=== PATIENT | male | born 1940 | race Caucasian/White ===

== ENCOUNTER 2019-08-16 17:55 | Inpatient (IN) | payer OTHER ==
[2019-08-16] MEDS ORDERED: ONDANSETRON 4 MG/2 ML VIAL IVPUSH ONE (18:01)
--- NOTE | 2019-08-16 18:05 | PDOC ---
Rapid Medical Evaluation Chief Complaint: Pain Time Seen by Provider: 08/16/19 18:01 Medical Evaluation: 08/16/19 18:04 HPI: Abdominal pain and vomiting today PE: RUQ tenderness ORDERS: Labs, EGG, Troponin Bili Discharge Disposition - Diagnosis Abdominal pain - Referrals - Patient Instructions - Post Discharge Activity
[2019-08-16] MEDS ORDERED: ONDANSETRON 4 MG/2 ML VIAL ONE (18:28)
[2019-08-16 18:57] LABS: BASO % 0.3 % (0-2.0); EOS % 0.1 % (0-4.5); HEMATOCRIT 45.2 % (35.4-49); HEMOGLOBIN 15.2 GM/dL (11.7-16.9); MCH 29.5 pg (25.7-33.7); MCHC 33.5 g/dl (32.0-35.9); MEAN CELL VOLUME 87.9 fl (80-96); MEAN PLT VOLUME 7.9 fl (7.5-11.1); MONO % 3.3 % (3.8-10.2); NEUT % 90.3 % (42.8-82.8); PLATELET COUNT 359 K/MM3 (134-434); RBC 5.15 M/mm3 (4.00-5.60); WHITE BLOOD COUNT 13.8 K/mm3 (4.0-10.0)
--- NOTE | 2019-08-16 19:09 | PDOC ---
History of Present Illness - General Chief Complaint: Pain Stated Complaint: ABD/PAIN/ALL QUADRANTS/VOMITTING Time Seen by Provider: 08/16/19 18:01 - History of Present Illness Initial Comments: 08/16/19 20:12 Mr. Thacker is a 79 y/o man with no reported pmhx who presents to the ED complaining of RUQ which began this afternoon around 12pm. Per the patient he had pain like this once before in May, at that time he was seen by a primary care doctor in a clinic (pt could not recall name of doctor) who did a RUQ u/s and told pt there was no evidence of gallstones or kidney stones. The doctor prescribed the pt omeprazole which he took every day and said his sx resolved. Then today the pt woke up and had a coffee when his pain began, it continued to become more severe until the pt vomited. He could not tolerate any food. He denied any blood in the vomit and said it was very little since he hadn 't eaten. The patient has not seen a belt buckle maker or ever had an endoscopy. The patient could not recall if anything made his sx better or worse and he didn't try taking any medicine except his omeprazole which didn't help. The pain is mainly in the RUQ but he also has diffuse pain throughout the abdominal area, it is not radiating anywhere else. Past History - Travel Traveled outside of the country in the last 30 days: No Close contact w/someone who was outside of country & ill: No - Past Medical History Allergies/Adverse Reactions: Allergies Allergy/AdvReac Type Severity Reaction Status Date / Time No Known Allergies Allergy Verified 08/16/19 18:04 Home Medications: Ambulatory Orders Omeprazole 20 mg PO DAILY 08/16/19 COPD: No GI Disorders: Yes (on Omeprazole) - Psycho Social/Smoking Cessation Hx Smoking History: Never smoked Information on smoking cessation initiated: No Hx Alcohol Use: No Drug/Substance Use Hx: No Review of Systems - Review of Systems Able to Perform ROS?: Yes Is the patient limited Slovak proficient: Yes Constitutional: Yes: Loss of Appetite, Malaise. No: Chills, Diaphoresis, Fever HEENTM: No: Eye Pain, Recent change in vision, Throat Pain, Throat Swelling Respiratory: No: Cough, Orthopnea, Shortness of Breath Cardiac (ROS): No: Chest Pain, Edema, Lightheadedness, Palpitations ABD/GI: Yes: Nausea, Poor Appetite, Vomiting, Other (severe RUQ abdominal pain) . No: Abdominal Distended, Abd. Pain w/ defecation, Blood Streaked Bowels, Constipated, Diarrhea : No: Burning, Dysuria, Frequency Integumentary: No: Bruising, Erythema, Lumps, Rash Neurological: No: Headache, Numbness, Paresthesia, Tingling *Physical Exam - Vital Signs Last Vital Signs Temp Pulse Resp BP Pulse Ox 98.3 F 102 H 19 127/78 97 08/16/19 18:03 08/16/19 18:03 08/16/19 18:03 08/16/19 18:03 08/16/19 18:03 - Physical Exam General Appearance: Yes: Nourished, Appropriately Dressed, Apparent Distress HEENT: positive: EOMI, ARACELI, Normal ENT Inspection, Normal Voice, TMs Normal Neck: positive: Trachea midline, Supple. negative: Tender Respiratory/Chest: positive: Lungs Clear, Normal Breath Sounds. negative: Respiratory Distress, Accessory Muscle Use Cardiovascular: positive: Regular Rhythm, Regular Rate, S1, S2. negative: JVD, Murmur Gastrointestinal/Abdominal: positive: Normal Bowel Sounds, Tender (diffusely tender and guarding throughout but worst pain in RUQ), Flat, Guarding Male Genitalia: positive: other (positive cunningham's sign) Musculoskeletal: positive: Normal Inspection. negative: CVA Tenderness, Vertebral Tenderness Extremity: positive: Normal Capillary Refill, Normal Inspection, Normal Range of Motion. negative: Tender Integumentary: positive: Normal Color, Dry, Warm Neurologic: positive: electronic prepress operator II-XII NML intact, Fully Oriented, Alert, Normal Mood/ Affect, Motor Strength 5/5 ED Treatment Course - LABORATORY CBC & Chemistry Diagram: 08/16/19 18:30 08/16/19 18:30 - ADDITIONAL ORDERS Additional order review: 08/16/19 18:30 RBC 5.15 MCV 87.9 MCHC 33.5 RDW 14.0 MPV 7.9 Neutrophils % 90.3 H Lymphocytes % 6.0 L Monocytes % 3.3 L Eosinophils % 0.1 Basophils % 0.3 - Medications Given in the ED: ED Medications Discontinued Medications Generic Name Dose Route Start Last Admin Trade Name Freq PRN Reason Stop Dose Admin Ondansetron HCl 4 mg 08/16/19 18:01 08/16/19 18:35 Zofran Injection IVPUSH 08/16/19 18:02 4 mg ONCE ONE Administration Medical Decision Making - Medical Decision Making 08/16/19 20:23 Mr. Thacker is a 79 y/o man with no reported pmhx who presents to the ED complaining of RUQ which began this afternoon around 12pm. Differential includes cholecystitis vs. PUD will obtain - CBC - CMP - RUQ u/s - CT abd with contrast - FOBT - Lipase - troponin - LFTs - Direct bili Will order: - 20mg Pepcid IVPB - 4mg morphine IV push for pain - Zofran for nausea 08/16/19 23:52 CT prelim read showing distended GB irregular thickening of the GB and dilated CBD suspicious for choledocolithasis, also irregular thickening of the greater curvature of the gastric mucosa. Tbili/ Dbili elevated 08/17/19 00:[address] Oliver who advised reaching out to GI first as pt likely to need MRCP. 08/17/19 00:[address] Oliver both consulted, pt to be admitted to [facility] for further evaluation Discharge - Discharge Information Clinical Impression/Diagnosis: Abdominal pain - Admission Yes - Follow up/Referral Referrals: Paradise Gomez MD [Primary Care Provider] - - Patient Discharge Instructions - Post Discharge Activity
[2019-08-16] MEDS ORDERED: morphine CARPU-JECT 4 MG/1 ML DISP.SYRIN IVPUSH ONE (19:57)
[2019-08-16] MEDS ORDERED: FAMOTIDINE 20 MG/50 ML IVPB 20 MG/50 ML MG IVPB ONE ×2 (19:57→20:04)
[2019-08-16] MEDS ORDERED: morphine SULFATE 4 MG/ML VIAL ONE (20:04)
[2019-08-16 20:24] LABS: BLOOD UREA NITROGEN 14.4 mg/dL (7-18); CALCIUM 8.9 mg/dL (8.5-10.1); CHLORIDE 106 mmol/L (98-107); CREATININE 1.1 mg/dL (0.55-1.3); GLUCOSE,RANDOM 143 mg/dL (74-106); POTASSIUM 4.9 mmol/L (3.5-5.1); SODIUM 136 mmol/L (136-145)
[2019-08-16 20:25] LABS: ALBUMIN 3.7 g/dl (3.4-5.0); BILIRUBIN,TOTAL 2.8 mg/dL (0.2-1); TOT PROT 7.8 g/dl (6.4-8.2)
[2019-08-16 20:26] LABS: ALK PHOS 308 U/L (45-117)
[2019-08-16 20:56] LABS: ANION GAP 7 MMOL/L (8-16); BILIRUBIN,DIRECT 1.4 mg/dL (0.0-0.2); CO2 23 mmol/L (21-32); SGOT/AST 124 U/L (15-37); SGPT/ALT 104 U/L (13-61)
[2019-08-16] MEDS ORDERED: PIPERACILLIN/TAZOB 3.375 GM 3.375 GM in DEXTROSE 5%-WATER - 50 ML IVPB ONE (22:50)
[2019-08-16] MEDS ORDERED: SODIUM CHLORIDE 0.9% 1000 ML INFUS.BAG IV ONE (22:51)
[2019-08-16] MEDS ORDERED: PIPERACILLIN/TAZOB 3.375 GM 3.375 GM/50 ML BAG IVPB ONE (23:01)
[2019-08-17] MEDS ORDERED: ACETAMINOPHEN 1000 MG/100 ML VIAL (NON FORMULARY) IVPB ONE (00:09)
[2019-08-17] MEDS ORDERED: ACETAMINOPHEN INJECTION 100 ML IVPB ONE (00:10)
--- NOTE | 2019-08-17 00:18 | PDOC ---
Documentation entered by Kenneth Lopez SCRIBE, acting as scribe for Reta Keita MD. Reta Keita MD: This documentation has been prepared by the John ordonez Daniel, SCRIBE, under my direction and personally reviewed by me in its entirety. I confirm that the documentation accurately reflects all work, treatment, procedures, and medical decision making performed by me. Attending Attestation - Resident Resident Name: Jazmin Sanchez - ED Attending Attestation I have performed the following: I have examined & evaluated the patient, The case was reviewed & discussed with the resident, I agree w/resident's findings & plan, Exceptions are as noted - HPI HPI: 08/16/19 20:01 The patient is a 79 year old male with no past medical history here today for evaluation of abdominal pain. The patient reports that his abdominal pain started yesterday, has been worsening since, and is most prominent in the right upper quadrant. He notes only drinking coffee today and vomiting 3 times which was described as bilious. Patients daughter notes that the patient had a similar pain in 06/07 and went to a clinic where he had a negative US. Patient also notes that he does not usually see a PCP but saw one last week. Patient denies headache, lightheadedness. Denies fever, chills. Denies chest pain, shortness of breath. Denies diarrhea. Allergies: NKA PCP: Paradise Gomez - Physicial Exam PE: 08/17/19 00:15 Patient is awake alert no acute distress lungs are clear bilaterally heart is regular without murmurs rubs or gallops abdomen is soft there is right upper quadrant tenderness to palpation no rebound no guarding noted. Extremities are warm and well perfused no edema skin is warm and dry no rash - Medical Decision Making 08/17/19 00:15 79-year-old male no known past medical history however has no PMD here complaining of epigastric right upper quadrant pain. Patient states he had a work-up for this 2 months back at that time had an ultrasound of his liver and gallbladder was told it was normal. Today started having extreme pain nausea but denies any vomiting has been complaining of chills but denies any fevers pain is severe it is constant no radiation denies any known history of renal stones or gallstones. No urinary changes no dysuria no frequency no diarrhea denies constipation last BM was today and was normal. On my exam patient has tenderness the right upper quadrant but is awake alert and oriented Differential diagnosis includes cholelithiasis, cholecystitis, pancreatitis, gastritis plan bedside us, us performed screening, pt with wall edema, questionable pericholecystic fluid vs. focal fatty sparing. no stones. cbd borderline dilated. plan radiology us, and ct a/p ct a/p with wal thickening, and dilatd CBD, stomach wall irregularity LFT abnormal. WBc 13. plan give maurizio, azael. d/w surgery jon Manley see in hospital. d/w GI. will priya to hospitalist
[2019-08-17] MEDS ORDERED: ONDANSETRON 4 MG/2 ML VIAL IVPUSH PRN ×2 (00:34→13:42)
[2019-08-17] MEDS ORDERED: LACTATED RINGERS SOLUTION 1,000 ML IV SCH ×4 (00:45→13:45)
--- NOTE | 2019-08-17 01:29 | HP ---
CHIEF COMPLAINT: Abdominal Pain PCP: Dr. Chao HISTORY OF PRESENT ILLNESS: This is a 79 y/o Salvadorean speaking M with no reported medical history who presents with 10/10 RUQ pain that is non-radiating X 1 day. He had a fever and nausea/NBNB emesis for a day as well. Pt denies any association with foods. Pt's only medication he takes is omeprazole 20mg. He has not seen a GI doctor recently or in the past. Pt has not traveled recently, been on abx, or been exposed to sick contacts. Pt denies any cp, sob, bowel/ bladder complaints, back pain, GERD recently. ER course was notable for: (1)IVF LR 100cc/hr, AST/ALT- 124/104, Zosyn given (2) T bili- 2.8, Dbili- 1.4, ALP- 308, Lipase normal (3) Fatty liver on Sonogram and ct abd/pelvis- distended GB irregularly thickened GB, dilated CBD suspicious for Choledocholithiasis w irregularly thickened gastric mucosa. Recent Travel: denies PAST SURGICAL HISTORY: denies Social History: Smoking: never Alcohol: never Drugs: never Allergies No Known Allergies Allergy (Verified 08/16/19 18:04) HOME MEDICATIONS: Home Medications Medication Instructions Recorded Omeprazole 20 mg PO DAILY 08/16/19 REVIEW OF SYSTEMS negative except in HPI PHYSICAL EXAMINATION Vital Signs - 24 hr 08/16/19 08/16/19 08/16/19 18:03 19:25 21:03 Temperature 98.3 F 98.7 F 102.6 F H Pulse Rate 102 H Pulse Rate [ 99 H Left Radial] Respiratory 19 20 Rate Blood Pressure 127/78 Blood Pressure 127/66 [Right Arm] O2 Sat by Pulse 97 97 Oximetry (%) GENERAL: Awake, alert, and fully oriented, in minimal acute distress. LUNGS: Breath sounds equal, clear to auscultation bilaterally. No wheezes, and no crackles. No accessory muscle use. HEART: Regular rate and rhythm, normal S1 and S2 without murmur, rub or gallop. ABDOMEN: Soft, tenderness to palpation of RUQ, negative cunningham sign, not distended, normoactive bowel sounds, no guarding, no rebound, no masses. LOWER EXTREMITIES: 2+ pulses, warm, well-perfused. No calf tenderness. No peripheral edema. SKIN: Warm, dry, no rashes or lesions noted Laboratory Results - last 24 hr 08/16/19 08/16/19 08/16/19 00:04 18:30 18:30 WBC 13.8 H RBC 5.15 Hgb 15.2 Hct 45.2 MCV 87.9 MCH 29.5 MCHC 33.5 RDW 14.0 Plt Count 359 MPV 7.9 Absolute Neuts (auto) 12.4 H Neutrophils % 90.3 H Lymphocytes % 6.0 L Monocytes % 3.3 L Eosinophils % 0.1 Basophils % 0.3 Nucleated RBC % 0 Sodium 136 Potassium 4.9 Chloride 106 Carbon Dioxide 23 Anion Gap 7 L BUN 14.4 Creatinine 1.1 Est GFR (CKD-EPI)AfAm 74.13 Est GFR (CKD-EPI)NonAf 63.96 Random Glucose 143 H Lactic Acid 2.1 H Calcium 8.9 Total Bilirubin 2.8 H Direct Bilirubin 1.4 H AST 124 H ALT 104 H Alkaline Phosphatase 308 H Troponin I < 0.02 Total Protein 7.8 Albumin 3.7 Lipase 08/16/19 18:30 WBC RBC Hgb Hct MCV MCH MCHC RDW Plt Count MPV Absolute Neuts (auto) Neutrophils % Lymphocytes % Monocytes % Eosinophils % Basophils % Nucleated RBC % Sodium Potassium Chloride Carbon Dioxide Anion Gap BUN Creatinine Est GFR (CKD-EPI)AfAm Est GFR (CKD-EPI)NonAf Random Glucose Lactic Acid Calcium Total Bilirubin Direct Bilirubin AST ALT Alkaline Phosphatase Troponin I Total Protein Albumin Lipase 249 ASSESSMENT/PLAN: This is a 79 y/o Salvadorean speaking M with no reported medical history who presents with 10/10 RUQ pain that is non-radiating X 1 day. He had a fever and nausea/NBNB emesis for a day as well. #Septic 2/2 Acute Cholecystitis and probable acute ascending cholangitis - Surgery consulted (Dr. Alberto) for Cholecystectomy once GI performs MRCP or ERCP - GI consulted (Dr Simpson) for probable MRCP to visualize the biliary tree and potentially ERCP to remove the CBD stone. - ALP: 308, AST/ALT: 124/104 - Dbili: 1.4 - Tbili: 2.8, normal lipase, maite pentad positive signs - blood cultures pending - Fatty liver shown on sono which is probably why LFT's are elevated as well as of course cholecystitis. - Zosyn continued 3.375g TID, as risk of biliary sludge with ceftriaxone. - DVT ppx: Lovenox 40mg SQ Visit type - Emergency Visit Emergency Visit: Yes ED Registration Date: 08/17/19 Care time: The patient presented to the Emergency Department on the above date and was hospitalized for further evaluation of their emergent condition. - New Patient This patient is new to me today: Yes Date on this admission: 08/19/19 - Critical Care Critical Care patient: No ATTENDING PHYSICIAN STATEMENT I saw and evaluated the patient. I reviewed the resident's note and discussed the case with the resident. I agree with the resident's findings and plan as documented. SUBJECTIVE: OBJECTIVE: ASSESSMENT AND PLAN:
--- NOTE | 2019-08-17 03:04 | PN ---
Teaching Attending Note Name of Resident: Nate Knox ATTENDING PHYSICIAN STATEMENT I saw and evaluated the patient. I reviewed the resident's note and discussed the case with the resident. I agree with the resident's findings and plan as documented. SUBJECTIVE: 79-year-old male who does not regularly follow with a physician reported no past medical history complained of his right upper quadrant which started about 1 day ago multiple episodes of bloody bilious vomiting but no diarrhea. Pain started spontaneously, no prior events of similar pain reported. Denied any fever chills. Patient has never had any surgeries and has never been hospitalized before. OBJECTIVE: Last Vital Signs Temp Pulse Resp BP Pulse Ox 102.6 F H 99 H 20 127/66 97 08/16/19 21:03 08/16/19 19:25 08/16/19 19:25 08/16/19 19:25 08/16/19 19:25 GENERAL: Well developed, well nourished. Awake and alert. No acute distress. HEENT: Normocephalic, atraumatic. PERRLA, EOMI. No conjunctival pallor. Mild scleral icterus is appreciated NECK: Supple. Full ROM. No JVD. Carotid pulses 2+ and symmetric, without bruits. No thyromegaly. No lymphadenopathy. CARDIOVASCULAR: Regular rate and rhythm. No murmurs, rubs, or gallops. Distal pulses are 2+ and symmetric. PULMONARY: No evidence of respiratory distress. Lungs clear to auscultation bilaterally. No wheezing, rales or rhonchi. ABDOMINAL: Soft. Non-tender. Non-distended. No rebound or guarding. No organomegaly. Normoactive bowel sounds. Negative Spencer sign MUSCULOSKELETAL Normal range of motion at all joints. No bony deformities or tenderness. No CVA tenderness. EXTREMITIES: No cyanosis. No clubbing. No edema. No calf tenderness. SKIN: Warm and dry. Normal capillary refill. No rashes. No jaundice. PSYCHIATRIC: Cooperative. Good eye contact. Appropriate mood and affect. Abnormal Lab Results 08/16/19 08/16/19 08/16/19 00:04 18:30 18:30 WBC 13.8 H Absolute Neuts (auto) 12.4 H Neutrophils % 90.3 H Lymphocytes % 6.0 L Monocytes % 3.3 L Anion Gap 7 L Random Glucose 143 H Lactic Acid 2.1 H Total Bilirubin 2.8 H Direct Bilirubin 1.4 H AST 124 H ALT 104 H Alkaline Phosphatase 308 H Imaging studies reviewed Right upper quadrant ultrasound revealed fatty liver but no evidence of cholelithiasis or cholecystitis. CT of abdomen pelvis with IV contrast showed elongated and distended gallbladder with irregular thickened wall appearance. CBD was dilated at 11 mm with questionable noncalcified stone within the distal common bile duct at the level of the ampulla. ASSESSMENT AND PLAN: 79-year-old male with sepsis secondary to cholecystitis and/or cholangitis. High fever, tachycardia, leukocytosis. Cholestatic picture of transaminitis with high total and direct bilirubin, high alkaline phosphatase. Radiological evidence of cholecystitis and dilated CBD suggestive of cholangitis.Mild lactic acidosis. [facility] Repeat lactic acid IV fluid hydration Empiric antibiotic therapy with Zosyn Infectious disease, GI, surgery consultations Patient may require cholecystectomy and ERCP PT, PTT, type and screen Avoid antiplatelet agents and anticoagulants #Transaminitispresumed to be secondary to choledocholithiasis and cholecystitis Hepatitis B C serologies Tylenol and EtOH levels Urine drug screen Repeat liver chemistry SCDs for DVT prophylaxis
[2019-08-17 05:25] VITALS: BMI 24.4
[2019-08-17] MEDS ORDERED: MORPHINE SULFATE 2 MG/ML VIAL IVPUSH PRN (06:10)
[2019-08-17] MEDS ORDERED: DEXTROSE 5%-WATER - 50 ML IVPB ONE ×2 (06:59→12:20)
[2019-08-17] MEDS ORDERED: PIPERACILLIN/TAZOBACTAM 3.375 GM VIAL IVPB ONE ×2 (06:59→12:20)
[2019-08-17] MEDS: PIPERACILLIN/TAZOB 3.375 GM 3.375 GM in DEXTROSE 5%-WATER - 50 ML IVPB SCH ×2 (07:04→12:22)
[2019-08-17] MEDS ORDERED: PIPERACILLIN/TAZOB 3.375 GM 3.375 GM in DEXTROSE 5%-WATER - 50 ML IVPB SCH (08:00)
[2019-08-17 09:16] LABS: BASO % 0.1 % (0-2.0); HEMATOCRIT 36.5 % (35.4-49); HEMOGLOBIN 12.5 GM/dL (11.7-16.9); LYMPH % 10.9 % (8-40); MCH 29.8 pg (25.7-33.7); MCHC 34.2 g/dl (32.0-35.9); MEAN CELL VOLUME 86.9 fl (80-96); MEAN PLT VOLUME 7.9 fl (7.5-11.1); MONO % 4.9 % (3.8-10.2); NEUT % 84.1 % (42.8-82.8); PLATELET COUNT 300 K/MM3 (134-434); WHITE BLOOD COUNT 17.5 K/mm3 (4.0-10.0)
[2019-08-17 09:47] LABS: ALBUMIN 2.8 g/dl (3.4-5.0); BILIRUBIN,TOTAL 5.2 mg/dL (0.2-1); BLOOD UREA NITROGEN 16.3 mg/dL (7-18); CALCIUM 8.3 mg/dL (8.5-10.1); CREATININE 1.1 mg/dL (0.55-1.3); MAGNESIUM 1.8 mg/dL (1.8-2.4); PHOSPHOROUS 3.8 mg/dL (2.5-4.9); POTASSIUM 3.8 mmol/L (3.5-5.1)
[2019-08-17] MEDS ORDERED: ENOXAPARIN NA (PORCINE) 40 MG/0.4 ML DISP.SYRIN SQ SCH (10:00)
[2019-08-17] MEDS ORDERED: SODIUM CHLORIDE 500 ML IV STA (10:11)
[2019-08-17 11:25] LABS: INR 1.18 (0.83-1.09)
[2019-08-17 11:28] LABS: ACTIVATED PTT 31.2 SECONDS (25.2-36.5)
[2019-08-17 11:44] LABS: URINE APPEARANCE CLEAR; URINE BILIRUBIN MODERATE (NEGATIVE); URINE COLOR DK YELLOW; URINE GLUCOSE (UA) NEGATIVE (NEGATIVE)
[2019-08-17 11:45] LABS: URINE KETONE NEGATIVE (NEGATIVE); URINE NITRITE POSITIVE (NEGATIVE); URINE PROTEIN TRACE (NEGATIVE)
[2019-08-17 11:46] LABS: EPI CELLS 0.6 /HPF (0-5/HPF); HYALINE CASTS 2.16 /lpf (0-8); URINE BACTERIA 0.3 /hpf (NEGATIVE); URINE LEUK ESTERASE NEGATIVE (NEGATIVE); URINE RBC 2 /hpf (0-4); URINE WBC 0.6 /hpf (0-5)
[2019-08-17] MEDS ORDERED: MIDAZOLAM HCL 2 MG/2 ML SINGLE DOSE VIAL ONE (12:04)
--- NOTE | 2019-08-17 12:34 | CON.ID ---
Consult Consult Specialty:: infectious disease Referred by:: hospitalist Reason for Consultation:: fever - History of Present Illness Chief Complaint: ruq pain and vomiting History of Present Illness: 79 yo man admitted with RUQ pain and vomiting had fever to 102 after admission nonbloody vomiting no diarrhea travels to [facility] every winter in May he had abdominal pain- seen in clinic on [facility]- daughter has the papers- abnormal lfts with sonogram showing dilated cbd placed on omeprazole seen in clinic last week when they were given the labs and sonogram results had fevers that spontaneously resolved in May no surgery no diabetes currently no abdominal pain - History Source History Provided By: Family Member Limitations to Obtaining History: Language Barrier - Alcohol/Substance Use Hx Alcohol Use: No - Smoking History Smoking history: Never smoked Home Medications - Allergies Allergies/Adverse Reactions: Allergies Allergy/AdvReac Type Severity Reaction Status Date / Time No Known Allergies Allergy Verified 08/16/19 18:04 - Home Medications Home Medications: Ambulatory Orders Omeprazole 20 mg PO BID 08/16/19 Family Medical History Family History: Denies Review of Systems - Review of Systems Constitutional: reports: Fever Eyes: reports: No Symptoms HENT: reports: No Symptoms Neck: reports: No Symptoms Cardiovascular: reports: No Symptoms. denies: Chest Pain Respiratory: reports: No Symptoms. denies: SOB Gastrointestinal: reports: Abdominal Pain, Vomiting Genitourinary: reports: No Symptoms Physical Exam Vital Signs: Vital Signs Temperature 98.4 F 08/17/19 08:47 Pulse Rate 74 08/17/19 08:47 Respiratory Rate 18 08/17/19 08:47 Blood Pressure 93/51 L 08/17/19 08:47 O2 Sat by Pulse Oximetry (%) 96 08/17/19 00:27 Constitutional: Yes: Well Nourished, No Distress, Calm Eyes: Yes: Sclera Icterus HENT: Yes: Atraumatic, Normocephalic Neck: Yes: Supple, Trachea Midline Cardiovascular: Yes: Regular Rate and Rhythm Respiratory: Yes: Regular, CTA Bilaterally Gastrointestinal: Yes: Soft, Other (received pain meds, currently no abdominal pain) ...Rectal Exam: Yes: Deferred Extremities: Yes: WNL Edema: No Labs: CBC, BMP 08/17/19 08:05 08/17/19 08:05 Imaging - Results Cat Scan: Report Reviewed Ultrasound: Report Reviewed Problem List - Problems (1) Biliary sepsis Code(s): K83.09 - OTHER CHOLANGITIS (2) Choledocholithiasis with acute cholecystitis Code(s): K80.42 - CALCULUS OF BILE DUCT W ACUTE CHOLECYSTITIS W/O OBSTRUCTION Assessment/Plan blood cultures sent for ERCP today with GI and surgical evalustions pending continue maurizio
[2019-08-17 13:11] LABS: BILIRUBIN,DIRECT 3.9 mg/dL (0.0-0.2)
--- NOTE | 2019-08-17 14:17 | EKG ---
Test Reason : Blood Pressure : / mmHG Vent. Rate : 095 BPM Atrial Rate : 095 BPM P-R Int : 152 ms QRS Dur : 064 ms QT Int : 328 ms P-R-T Axes : 041 034 056 degrees QTc Int : 412 ms POOR DATA QUALITY, INTERPRETATION MAY BE ADVERSELY AFFECTED NORMAL SINUS RHYTHM NORMAL ECG NO PREVIOUS ECGS AVAILABLE Confirmed by CLARKE GÓMEZ MD ([id number]) on 08/17/2019 2:17:07 PM Referred By: Confirmed By:CLARKE GÓMEZ MD
--- NOTE | 2019-08-17 14:24 | CONS ---
DATE OF CONSULTATION: 08/17/2019 REASON FOR CONSULTATION: Cholangitis. This is an emergency room consultation at the request of the emergency room physician. BRIEF HISTORY: This is a 79-year-old male who presented to [facility] Emergency Room complaining of several weeks of upper abdominal pain. He had worsening today with nausea and vomiting. He was noted to have markedly elevated liver function tests with a bilirubin of 5.2 as well as elevated transaminases and alkaline phosphatase. His CAT scan showed a 1.7-cm common bile duct with choledocholithiasis seen on CAT scan. There was also thickening of the gallbladder as well as fluid. This is why a surgeon was asked to see the patient by the emergency room physician. He had an ultrasound done, which showed no gallstones. His home medications include Prilosec. In the hospital, he was on Zosyn. PAST MEDICAL HISTORY: Nil. FAMILY HISTORY: Noncontributory. REVIEW OF SYSTEMS: Difficult to obtain as the patient is currently mildly sedated after emergent ERCP done by Dr. Simpson. PHYSICAL EXAMINATION: HEENT: His head is normocephalic. He does have sclerae icterus. Neck: Supple. Chest: Clear. Abdomen: Soft. He has some mild epigastric tenderness. He has no surgical scars. He is mildly distended. Extremities: Have no edema. On review of his lab, as stated in HPI. In addition, he has a white count of 17,000. Of note, I spoke with Dr. Simpson, and there was pus noted in the common bile duct with multiple stones, and a stent was placed. ASSESSMENT: This is a 79-year-old male who presented with upper abdominal pain, leukocytosis, pus in his bile duct with a dilated duct and stones. This is cholangitis. He is status post relieving of the obstruction with sphincterotomy and stone extraction and stent placement. PLAN: At this point, he needs to convalesce. Recommend continue Zosyn antibiotic for the next several days. Once he is optimized, would recommend cholecystectomy prior to discharge. I discussed this with his multiple family members, and again, patient is currently not fully awake, and this will be discussed with him in the future, but I suspect that he will be agreeable. He is also planning on travelling next week back to his home country. This trip will likely need to be delayed, and the family understands that. DO KARI MOREL/[id number]
--- NOTE | 2019-08-17 14:48 | PN ---
Teaching Attending Note Name of Resident: Caryl Kim ATTENDING PHYSICIAN STATEMENT I saw and evaluated the patient. I reviewed the resident's note and discussed the case with the resident. I agree with the resident's findings and plan as documented. SUBJECTIVE: seen with daughter at bed side. he feels better and denies any pain but had received morphine earlier. no N/V now but had it at home. daughter reports pain has been there x 3 days OBJECTIVE: NAd , pleasant and comfortable. MMM CV: RRR . no MRG Lungs: CTAB Ext: No edema or erythema. Abd: soft, NT, ND, NL BS . on diversity intern exam earlier, he had tenderness in epigastric and RUQ area ASSESSMENT AND PLAN: 79 y/o gentleman with possible h/o GERD who presented with Abd pain and nausea and vomiting. he was found to have transaminitis. 1- Sepsis: due to cholecystitis and suspected cholangitis. can't r/o obstruction with a passed stone despite no stones on US. concerning is the continued rise in Bili and the hypotension - case was d/w dr. Carlos twice by Dr. kim. decision was made to do ERCP today - cont zosyn - follow blood cx - will dc lovenox in case he gets sphincterectomy - will dc flagyl. d/w Dr. Dodson - Increased LR this am due to hypotension - will cont high dose IVF after ERCP to avoid post ERCP pancreatitis - NPO - Monitor CBC and LFTS - SCDs
--- NOTE | 2019-08-17 15:39 | PN ---
Physical Exam: SUBJECTIVE: Patient seen and examined. He reports RUQ, LUQ, and epigastric pain , chills, nausea, and vomiting. He denies chest pain, shortness of breath, dizziness, and diarrhea. Family reports pt was having abdominal pain in May and started on omeprazole. OBJECTIVE: Vital Signs Period Temp Pulse Resp BP Sys/Akers Pulse Ox Last 24 Hr 97.9 F-102.6 F 67-102 13-20 91-127/51-78 96-100 GENERAL: The patient is awake, alert, and fully oriented, in no acute distress. HEAD: Normal with no signs of trauma. EYES: PERRL, extraocular movements intact, sclera anicteric, conjunctiva clear. ENT: Ears normal, nares patent, moist mucous membranes. NECK: Trachea midline, full range of motion LUNGS: Clear to auscultation bilaterally, no wheezes HEART: Regular rate and rhythm, no murmur ABDOMEN: Soft, upper abdominal and epigastric tenderness, nondistended, normoactive bowel sounds, no guarding, no rebound EXTREMITIES: Warm, well-perfused, no edema. NEUROLOGICAL: Cranial nerves II through XII grossly intact. Normal speech. PSYCH: Normal mood, normal affect. SKIN: Warm, dry, normal turgor Laboratory Results - last 24 hr 08/16/19 08/16/19 08/16/19 00:04 18:30 18:30 WBC 13.8 H RBC 5.15 Hgb 15.2 Hct 45.2 MCV 87.9 MCH 29.5 MCHC 33.5 RDW 14.0 Plt Count 359 MPV 7.9 Absolute Neuts (auto) 12.4 H Neutrophils % 90.3 H Lymphocytes % 6.0 L Monocytes % 3.3 L Eosinophils % 0.1 Basophils % 0.3 Nucleated RBC % 0 PT with INR INR PTT (Actin FS) Sodium 136 Potassium 4.9 Chloride 106 Carbon Dioxide 23 Anion Gap 7 L BUN 14.4 Creatinine 1.1 Est GFR (CKD-EPI)AfAm 74.13 Est GFR (CKD-EPI)NonAf 63.96 Random Glucose 143 H Lactic Acid 2.1 H Calcium 8.9 Phosphorus Magnesium Total Bilirubin 2.8 H Direct Bilirubin 1.4 H AST 124 H ALT 104 H Alkaline Phosphatase 308 H Troponin I < 0.02 Total Protein 7.8 Albumin 3.7 Lipase Urine Color Urine Appearance Urine pH Ur Specific [place] Urine Protein Urine Glucose (UA) Urine Ketones Urine Blood Urine Nitrite Urine Bilirubin Urine Urobilinogen Ur Leukocyte Esterase Urine WBC (Auto) Urine RBC (Auto) Urine Casts (Auto) U Epithel Cells (Auto) Urine Bacteria (Auto) Acetaminophen Blood Type Antibody Screen 08/16/19 08/17/19 08/17/19 18:30 04:30 05:30 WBC RBC Hgb Hct MCV MCH MCHC RDW Plt Count MPV Absolute Neuts (auto) Neutrophils % Lymphocytes % Monocytes % Eosinophils % Basophils % Nucleated RBC % PT with INR INR PTT (Actin FS) Sodium Potassium Chloride Carbon Dioxide Anion Gap BUN Creatinine Est GFR (CKD-EPI)AfAm Est GFR (CKD-EPI)NonAf Random Glucose Lactic Acid 1.3 Calcium Phosphorus Magnesium Total Bilirubin Direct Bilirubin AST ALT Alkaline Phosphatase Troponin I Total Protein Albumin Lipase 249 Urine Color Dk yellow Urine Appearance Clear Urine pH 5.0 Ur Specific [place] 1.086 H Urine Protein Trace Urine Glucose (UA) Negative Urine Ketones Negative Urine Blood Negative Urine Nitrite Positive H Urine Bilirubin Moderate Urine Urobilinogen 2.0 Ur Leukocyte Esterase Negative Urine WBC (Auto) 0.6 Urine RBC (Auto) 2 Urine Casts (Auto) 2.16 U Epithel Cells (Auto) 0.6 Urine Bacteria (Auto) 0.3 Acetaminophen Blood Type Antibody Screen 08/17/19 08/17/19 08/17/19 08:05 08:05 08:05 WBC 17.5 H RBC 4.20 Hgb 12.5 Hct 36.5 D MCV 86.9 MCH 29.8 MCHC 34.2 RDW 14.0 Plt Count 300 MPV 7.9 Absolute Neuts (auto) 14.7 H Neutrophils % 84.1 H Lymphocytes % 10.9 D Monocytes % 4.9 Eosinophils % 0.0 D Basophils % 0.1 Nucleated RBC % 0 PT with INR INR PTT (Actin FS) Sodium 139 Potassium 3.8 Chloride 110 H Carbon Dioxide 24 Anion Gap 6 L BUN 16.3 Creatinine 1.1 Est GFR (CKD-EPI)AfAm 74.13 Est GFR (CKD-EPI)NonAf 63.96 Random Glucose 87 Lactic Acid Calcium 8.3 L Phosphorus 3.8 Magnesium 1.8 Total Bilirubin 5.2 H D Direct Bilirubin 3.9 H AST 89 H ALT 105 H Alkaline Phosphatase 233 H Troponin I Total Protein 6.0 L Albumin 2.8 L Lipase Urine Color Urine Appearance Urine pH Ur Specific [place] Urine Protein Urine Glucose (UA) Urine Ketones Urine Blood Urine Nitrite Urine Bilirubin Urine Urobilinogen Ur Leukocyte Esterase Urine WBC (Auto) Urine RBC (Auto) Urine Casts (Auto) U Epithel Cells (Auto) Urine Bacteria (Auto) Acetaminophen <2.0 Blood Type Antibody Screen 08/17/19 08/17/19 10:20 10:20 WBC RBC Hgb Hct MCV MCH MCHC RDW Plt Count MPV Absolute Neuts (auto) Neutrophils % Lymphocytes % Monocytes % Eosinophils % Basophils % Nucleated RBC % PT with INR 14.00 H INR 1.18 H PTT (Actin FS) 31.2 Sodium Potassium Chloride Carbon Dioxide Anion Gap BUN Creatinine Est GFR (CKD-EPI)AfAm Est GFR (CKD-EPI)NonAf Random Glucose Lactic Acid Calcium Phosphorus Magnesium Total Bilirubin Direct Bilirubin AST ALT Alkaline Phosphatase Troponin I Total Protein Albumin Lipase Urine Color Urine Appearance Urine pH Ur Specific [place] Urine Protein Urine Glucose (UA) Urine Ketones Urine Blood Urine Nitrite Urine Bilirubin Urine Urobilinogen Ur Leukocyte Esterase Urine WBC (Auto) Urine RBC (Auto) Urine Casts (Auto) U Epithel Cells (Auto) Urine Bacteria (Auto) Acetaminophen Blood Type O POSITIVE Antibody Screen Negative Active Medications Generic Name Dose Route Start Last Admin Trade Name Freq PRN Reason Stop Dose Admin Fentanyl 25 mcg 08/17/19 13:42 Sublimaze Injection - IVPUSH 08/18/19 13:41 [id number] PRN PAIN-PACU ORDER X 4 DOSES ONLY Piperacillin Sod/Tazobactam 100 mls @ 200 mls/hr 08/17/19 18:00 Sod 4.5 gm/ Dextrose IVPB Q8H-IV KAREN Protocol Lactated Ringer's 1,000 mls @ 75 mls/hr 08/17/19 13:45 08/17/19 15:00 Lactated Ringers Solution IV 0 mls ASDIR KAREN Administration Morphine Sulfate 1 mg 08/17/19 06:10 Morphine Sulfate IVPUSH Q4H PRN PAIN LEVEL 7 - 10 Ondansetron HCl 4 mg 08/17/19 00:34 Zofran Injection IVPUSH Q6H PRN NAUSEA Ondansetron HCl 4 mg 08/17/19 13:42 Zofran Injection IVPUSH Q6H PRN NAUSEA AND/OR VOMITING ASSESSMENT/PLAN: Mr. Kirkland is a 79y/o male with abdominal pain that began 2 months ago. Initial workup was negative and pt was started on omeprazole. Pain worsened over the last 3 days, so pt presented to the ED. #sepsis 2/2 cholecystitis and cholangitis -ERCP performed with stone removal and stent placement -Zosyn 4.5g Q8H -Zofran PRN -morphine PRN -clear liquid diet -LR 100mL/hr -ID following -GI following -surgery following -blood cx pending DVT Ppx SCDs FEN LR 100mL/hr monitor labs clear diet Visit type - Emergency Visit Emergency Visit: Yes ED Registration Date: 08/17/19 Care time: The patient presented to the Emergency Department on the above date and was hospitalized for further evaluation of their emergent condition. - New Patient This patient is new to me today: Yes Date on this admission: 08/17/19 - Critical Care Critical Care patient: No - Discharge Referral Referred to [facility] No ATTENDING PHYSICIAN STATEMENT I saw and evaluated the patient. I reviewed the resident's note and discussed the case with the resident. I agree with the resident's findings and plan as documented. SUBJECTIVE: OBJECTIVE: ASSESSMENT AND PLAN:
[2019-08-17] MEDS ORDERED: DEXTROSE 5%-WATER 100 ML IVPB ONE (17:21)
[2019-08-17] MEDS ORDERED: PIPERACILLIN/TAZOBACTAM 4.5 GM VIAL IVPB ONE (17:21)
[2019-08-17] MEDS: LACTATED RINGERS SOLUTION 1,000 ML/1,000 ML INFUS.BAG IV SCH (17:39)
[2019-08-17] MEDS: PIPERACILLIN/TAZOB 4.5 GM 4.5 GM in DEXTROSE 5%-WATER 100 ML IVPB SCH (17:39)
--- NOTE | 2019-08-17 17:53 | CON.GI ---
Consult Consult Specialty:: GI - History of Present Illness History of Present Illness: 79 y/o m with no significant medical history was admitted with abdominal pain, fever, leukocytosis, elevated LFTS associated with dilated CBD by CT and abdominal ulytasound. This morning he had worsening leukocytosis and T.bili - Alcohol/Substance Use Hx Alcohol Use: No - Smoking History Smoking history: Never smoked Home Medications - Allergies Allergies/Adverse Reactions: Allergies Allergy/AdvReac Type Severity Reaction Status Date / Time No Known Allergies Allergy Verified 08/16/19 18:04 - Home Medications Home Medications: Ambulatory Orders Omeprazole 20 mg PO BID 08/16/19 Physical Exam-GI Vital Signs: Vital Signs Temperature 97.9 F 08/17/19 15:22 Pulse Rate 67 08/17/19 15:22 Respiratory Rate 18 08/17/19 15:22 Blood Pressure 107/67 08/17/19 15:22 O2 Sat by Pulse Oximetry (%) 100 08/17/19 15:00 Constitutional: Yes: Well Nourished Eyes: Yes: Sclera Icterus HENT: Yes: Atraumatic Neck: Yes: Supple Cardiovascular: Yes: Regular Rate and Rhythm Respiratory: Yes: CTA Bilaterally ...Palpate: Yes: Soft, Tenderness, Epigastium. No: Firm/Rigid, Guarding, Hepatomegaly, Mass, Pulsatile Mass, Splenomegaly ...Percussion: Yes: Tympanitic Labs: CBC, BMP 08/17/19 08:05 08/17/19 08:05 INR, PTT INR 1.18 (0.83-1.09) H 08/17/19 10:20 Hepatic Panel Total Bilirubin 5.2 mg/dL (0.2-1) H D 08/17/19 08:05 Direct Bilirubin 3.9 mg/dL (0.0-0.2) H 08/17/19 08:05 AST 89 U/L (15-37) H 08/17/19 08:05 ALT 105 U/L (13-61) H 08/17/19 08:05 Alkaline Phosphatase 233 U/L (45-117) H 08/17/19 08:05 Albumin 2.8 g/dl (3.4-5.0) L 08/17/19 08:05 Imaging - Results Chest X-ray: Image Reviewed X-ray: Image Reviewed Problem List - Problems (1) Acute cholangitis Assessment/Plan: R> for emergent ERCP risk of ERCP including but not limited to severe pancreatitis, perforation, bleeding and adverse effects of anesthesia was discussed with the patient and family Code(s): K83.09 - OTHER CHOLANGITIS
--- NOTE | 2019-08-17 17:54 | PN ---
Progress Note (short form) - Note Progress Note: Post Procedure ERCP with removal of stones and stent insertion drained 30 cc of pus and delivered multipe stones, report was placed in the chart Problem List - Problems (1) Acute cholangitis Code(s): K83.09 - OTHER CHOLANGITIS
[2019-08-18] MEDS ORDERED: PIPERACILLIN/TAZOBACTAM 4.5 GM VIAL IVPB ONE ×3 (00:20→17:45)
[2019-08-18] MEDS ORDERED: DEXTROSE 5%-WATER 100 ML IVPB ONE ×3 (00:20→17:45)
[2019-08-18] MEDS: PIPERACILLIN/TAZOB 4.5 GM 4.5 GM in DEXTROSE 5%-WATER 100 ML IVPB SCH ×3 (01:13→18:15)
[2019-08-18] MEDS ORDERED: PIPERACILLIN/TAZOB 3.375 GM 3.375 GM in DEXTROSE 5%-WATER - 50 ML IVPB SCH (02:00)
[2019-08-18] MEDS: LACTATED RINGERS SOLUTION 1,000 ML/1,000 ML INFUS.BAG IV SCH ×2 (02:25→12:17)
[2019-08-18 09:04] LABS: HEMATOCRIT 35.5 % (35.4-49); HEMOGLOBIN 11.8 GM/dL (11.7-16.9); MCH 29.2 pg (25.7-33.7); MCHC 33.1 g/dl (32.0-35.9); MEAN CELL VOLUME 88.2 fl (80-96); MEAN PLT VOLUME 8.2 fl (7.5-11.1); PLATELET COUNT 287 K/MM3 (134-434); RBC 4.03 M/mm3 (4.00-5.60); RDW 14.2 % (11.9-15.9); WHITE BLOOD COUNT 13.2 K/mm3 (4.0-10.0)
[2019-08-18 09:31] LABS: ALBUMIN 2.7 g/dl (3.4-5.0); BILIRUBIN,TOTAL 4.5 mg/dL (0.2-1); CALCIUM 8.4 mg/dL (8.5-10.1); CREATININE 1.1 mg/dL (0.55-1.3); POTASSIUM 4.1 mmol/L (3.5-5.1)
--- NOTE | 2019-08-18 11:27 | PN ---
Physical Exam: SUBJECTIVE: Patient seen and examined at bedside- no acute events overnight patient did well s/p ERCP and is feeling much better- he is no longer experiencing abdominal pain and his labs are improving; he denies any CP/SOB/N/ V OBJECTIVE: Vital Signs Period Temp Pulse Resp BP Sys/Akers Pulse Ox Last 24 Hr 97.9 F-98.9 F 67-83 13-19 102-115/58-71 98-100 GENERAL: The patient is awake, alert, and fully oriented, in no acute distress.. EYES:PEERLA; EOMI; no scleral icterus NECK: no JVD; no lymphadenopathy LUNGS: CTA B.L; no rales, rhonchi or wheezing HEART: Regular rate and rhythm, S1, S2 without murmur, rub or gallop. ABDOMEN: Soft, NT/ND - murphys sign; +BS in all 4 quadrants EXTREMITIES: 2+ pulses, warm, well-perfused, no edema. PSYCH: Normal mood, normal affect. SKIN: Warm, dry, normal turgor, no rashes or lesions noted Laboratory Results - last 24 hr 08/17/19 08/17/19 08/17/19 05:30 08:05 08:05 WBC RBC Hgb Hct MCV MCH MCHC RDW Plt Count MPV PT with INR INR PTT (Actin FS) Sodium 139 Potassium 3.8 Chloride 110 H Carbon Dioxide 24 Anion Gap 6 L BUN 16.3 Creatinine 1.1 Est GFR (CKD-EPI)AfAm 74.13 Est GFR (CKD-EPI)NonAf 63.96 Random Glucose 87 Calcium 8.3 L Phosphorus 3.8 Magnesium 1.8 Total Bilirubin 5.2 H D Direct Bilirubin 3.9 H AST 89 H ALT 105 H Alkaline Phosphatase 233 H Total Protein 6.0 L Albumin 2.8 L Urine Color Dk yellow Urine Appearance Clear Urine pH 5.0 Ur Specific [place] 1.086 H Urine Protein Trace Urine Glucose (UA) Negative Urine Ketones Negative Urine Blood Negative Urine Nitrite Positive H Urine Bilirubin Moderate Urine Urobilinogen 2.0 Ur Leukocyte Esterase Negative Urine WBC (Auto) 0.6 Urine RBC (Auto) 2 Urine Casts (Auto) 2.16 U Epithel Cells (Auto) 0.6 Urine Bacteria (Auto) 0.3 Hep A IgM Ab Confirm Negative Hep Bs Antigen Negative Hep B Core IgM Ab Negative Hepatitis C Ab (EIA) <0.1 Blood Type Antibody Screen 08/17/19 08/17/19 08/17/19 10:20 10:20 15:30 WBC RBC Hgb Hct MCV MCH MCHC RDW Plt Count MPV PT with INR 14.00 H INR 1.18 H PTT (Actin FS) 31.2 Sodium Potassium Chloride Carbon Dioxide Anion Gap BUN Creatinine Est GFR (CKD-EPI)AfAm Est GFR (CKD-EPI)NonAf Random Glucose Calcium Phosphorus Magnesium Total Bilirubin Direct Bilirubin AST ALT Alkaline Phosphatase Total Protein Albumin Urine Color Urine Appearance Urine pH Ur Specific [place] Urine Protein Urine Glucose (UA) Urine Ketones Urine Blood Urine Nitrite Urine Bilirubin Urine Urobilinogen Ur Leukocyte Esterase Urine WBC (Auto) Urine RBC (Auto) Urine Casts (Auto) U Epithel Cells (Auto) Urine Bacteria (Auto) Hep A IgM Ab Confirm Hep Bs Antigen Hep B Core IgM Ab Hepatitis C Ab (EIA) Blood Type O POSITIVE O POSITIVE Antibody Screen Negative 08/18/19 08/18/19 08/18/19 08:00 08:00 08:00 WBC 13.2 H RBC 4.03 Hgb 11.8 Hct 35.5 MCV 88.2 MCH 29.2 MCHC 33.1 RDW 14.2 Plt Count 287 MPV 8.2 PT with INR INR PTT (Actin FS) Sodium 141 Potassium 4.1 Chloride 110 H Carbon Dioxide 25 Anion Gap 6 L BUN 13.0 Creatinine 1.1 Est GFR (CKD-EPI)AfAm 74.13 Est GFR (CKD-EPI)NonAf 63.96 Random Glucose 96 Calcium 8.4 L Phosphorus Magnesium Total Bilirubin 4.5 H Direct Bilirubin 3.6 H AST 88 H ALT 115 H Alkaline Phosphatase 202 H Total Protein 6.0 L Albumin 2.7 L Urine Color Urine Appearance Urine pH Ur Specific [place] Urine Protein Urine Glucose (UA) Urine Ketones Urine Blood Urine Nitrite Urine Bilirubin Urine Urobilinogen Ur Leukocyte Esterase Urine WBC (Auto) Urine RBC (Auto) Urine Casts (Auto) U Epithel Cells (Auto) Urine Bacteria (Auto) Hep A IgM Ab Confirm Hep Bs Antigen Hep B Core IgM Ab Hepatitis C Ab (EIA) Blood Type Antibody Screen Active Medications Generic Name Dose Route Start Last Admin Trade Name Freq PRN Reason Stop Dose Admin Fentanyl 25 mcg 08/17/19 13:42 Sublimaze Injection - IVPUSH 08/18/19 13:41 [id number] PRN PAIN-PACU ORDER X 4 DOSES ONLY Piperacillin Sod/Tazobactam 100 mls @ 200 mls/hr 08/17/19 18:00 08/18/19 10: 21 Sod 4.5 gm/ Dextrose IVPB 200 mls/hr Q8H-IV KAREN Administration Protocol Lactated Ringer's 1,000 ml in 1,000 mls @ 100 mls/hr 08/17/19 17:00 08/18/19 02:25 Lactated Ringers Solution IV 100 mls/hr ASDIR KAREN Administration Morphine Sulfate 1 mg 08/17/19 06:10 Morphine Sulfate IVPUSH Q4H PRN PAIN LEVEL 7 - 10 Ondansetron HCl 4 mg 08/17/19 00:34 Zofran Injection IVPUSH Q6H PRN NAUSEA Ondansetron HCl 4 mg 08/17/19 13:42 Zofran Injection IVPUSH Q6H PRN NAUSEA AND/OR VOMITING ASSESSMENT/PLAN: Mr. Kirkland is a 79y/o male who presented to the ED with RUQ pain found to have ascending cholangitis and is now s/p ERCP. #sepsis 2/2 ascending cholangitis WBC and LFTS downtrending this AM -patient is now s/p ERCP ( pus with multiple stones were removed and stent was placed) -Zosyn 4.5g Q8H -Zofran PRN -morphine PRN -clear liquid diet -LR 100mL/hr -ID following -GI following -surgery following- patient will need GB removed before discharge (likely tuesday) -blood cx negative -monitor CMP daily DVT Ppx SCDs FEN LR 100mL/hr monitor electrolytes clear diet Problem List - Problems (1) Acute cholangitis Code(s): K83.09 - OTHER CHOLANGITIS (2) Choledocholithiasis with acute cholecystitis Code(s): K80.42 - CALCULUS OF BILE DUCT W ACUTE CHOLECYSTITIS W/O OBSTRUCTION Visit type - Emergency Visit Emergency Visit: Yes ED Registration Date: 08/17/19 Care time: The patient presented to the Emergency Department on the above date and was hospitalized for further evaluation of their emergent condition. - New Patient This patient is new to me today: No - Critical Care Critical Care patient: No ATTENDING PHYSICIAN STATEMENT I saw and evaluated the patient. I reviewed the resident's note and discussed the case with the resident. I agree with the resident's findings and plan as documented. SUBJECTIVE: OBJECTIVE: ASSESSMENT AND PLAN:
--- NOTE | 2019-08-18 15:17 | PN ---
Teaching Attending Note Name of Resident: Caryl Kim ATTENDING PHYSICIAN STATEMENT I saw and evaluated the patient. I reviewed the resident's note and discussed the case with the resident. I agree with the resident's findings and plan as documented. SUBJECTIVE: Daughter at bedside No fever or chills. No FERRARO. No Abd pain. no N/V . he feels better OBJECTIVE: NAD. Pleasant and cooperative MMM CV: RRR. no MRG Lungs: CTAB Ext: No edema or erythema. Abd: soft, NT, ND, NL BS . ASSESSMENT AND PLAN: 79 y/o gentleman with possible h/o GERD who presented with Abd pain and nausea and vomiting. he was found to have ascending cholangitis . 1- Sepsis due to ascedning cholangitis . sepsis resolved . S/p ERCP with removal of stones and drainage of pus. stent placement. - LFTs improved - cont zosyn - Blood cx neg to date - cont to hold chemical DVT px after procedure. - cont LR - advance diet to full liquids . if tolerated can advance to regular tomorrow - Monitor for any clinical signs or post ERCP pancreatitis - patient and daughter were notified that stent needs to be removed in 3 months. f/u with GI after dc - SCDs.
--- NOTE | 2019-08-18 18:58 | PN.GI ---
GI Progress Note - Objective Vital Signs: Vital Signs Temperature 97.9 F 08/18/19 14:38 Pulse Rate 73 08/18/19 14:38 Respiratory Rate 19 08/18/19 14:38 Blood Pressure 102/64 08/18/19 14:38 O2 Sat by Pulse Oximetry (%) 97 08/18/19 09:00 Labs: CBC, BMP 08/18/19 08:00 08/18/19 08:00 INR, PTT INR 1.18 (0.83-1.09) H 08/17/19 10:20 Problem List - Problems (1) Acute cholangitis Code(s): K83.09 - OTHER CHOLANGITIS
[2019-08-19] MEDS ORDERED: PIPERACILLIN/TAZOBACTAM 4.5 GM VIAL IVPB ONE ×3 (00:22→17:13)
[2019-08-19] MEDS ORDERED: DEXTROSE 5%-WATER 100 ML IVPB ONE ×3 (00:22→17:13)
[2019-08-19] MEDS: PIPERACILLIN/TAZOB 4.5 GM 4.5 GM in DEXTROSE 5%-WATER 100 ML IVPB SCH ×3 (02:00→17:57)
[2019-08-19 07:02] LABS: HEMATOCRIT 38.7 % (35.4-49); MCH 29.6 pg (25.7-33.7); MCHC 33.5 g/dl (32.0-35.9); MEAN CELL VOLUME 88.6 fl (80-96); PLATELET COUNT 300 K/MM3 (134-434); RBC 4.37 M/mm3 (4.00-5.60); RDW 14.1 % (11.9-15.9); WHITE BLOOD COUNT 7.9 K/mm3 (4.0-10.0)
[2019-08-19 07:47] LABS: ALBUMIN 2.8 g/dl (3.4-5.0); BILIRUBIN,TOTAL 3.1 mg/dL (0.2-1); BLOOD UREA NITROGEN 10.2 mg/dL (7-18); CALCIUM 8.5 mg/dL (8.5-10.1); CREATININE 1.1 mg/dL (0.55-1.3); PHOSPHOROUS 2.9 mg/dL (2.5-4.9); TOT PROT 6.3 g/dl (6.4-8.2)
[2019-08-19 07:48] LABS: BILIRUBIN,DIRECT 2.2 mg/dL (0.0-0.2)
[2019-08-19] MEDS: LACTATED RINGERS SOLUTION 1,000 ML/1,000 ML INFUS.BAG IV SCH ×2 (10:19→19:50)
--- NOTE | 2019-08-19 15:39 | PN ---
Progress Note (short form) - Note Progress Note: Subjective: Feels better . No fever or chills. No FERRARO . No abd pain . passed gas. Objective: Vital Signs: Last Vital Signs Temp Pulse Resp BP Pulse Ox 98.6 F 67 17 123/78 98 08/19/19 14:23 08/19/19 14:23 08/19/19 14:23 08/19/19 14:23 08/19/19 09:00 Laboratory Results - last 24 hr 08/19/19 08/19/19 06:18 06:18 WBC 7.9 RBC 4.37 Hgb 13.0 Hct 38.7 MCV 88.6 MCH 29.6 MCHC 33.5 RDW 14.1 Plt Count 300 MPV 8.0 Sodium 140 Potassium 4.0 Chloride 106 Carbon Dioxide 26 Anion Gap 7 L BUN 10.2 Creatinine 1.1 Est GFR (CKD-EPI)AfAm 74.13 Est GFR (CKD-EPI)NonAf 63.96 Random Glucose 76 Calcium 8.5 Phosphorus 2.9 Magnesium 2.0 Total Bilirubin 3.1 H Direct Bilirubin 2.2 H AST 86 H ALT 125 H Alkaline Phosphatase 240 H Total Protein 6.3 L Albumin 2.8 L Physical Exam: NAD. Pleasant and cooperative MMM CV: RRR. no MRG. Lungs: CTAB Ext: No edema or erythema. Abd: soft, NT, ND, NL BS . ASSESSMENT AND PLAN: 79 y/o gentleman with possible h/o GERD who presented with Abd pain and nausea and vomiting. he was found to have ascending cholangitis . 1- Sepsis due to ascedning cholangitis . sepsis resolved . S/p ERCP with removal of stones and drainage of pus. stent placement. - LFTs cont to improve - cont zosyn - Blood cx neg to date - cont to hold chemical DVT px after procedure. - cont LR - avance diet - No clinical signs or post ERCP pancreatitis - cholecystectomy on Tuesday - SCDs. d/w daughter at bedside Visit type - Emergency Visit Emergency Visit: Yes ED Registration Date: 08/17/19 Care time: The patient presented to the Emergency Department on the above date and was hospitalized for further evaluation of their emergent condition. - New Patient This patient is new to me today: No - Critical Care Critical Care patient: No
[2019-08-20] MEDS ORDERED: DEXTROSE 5%-WATER 100 ML IVPB ONE ×3 (01:45→16:12)
[2019-08-20] MEDS ORDERED: PIPERACILLIN/TAZOBACTAM 4.5 GM VIAL IVPB ONE ×3 (01:45→16:12)
[2019-08-20] MEDS: PIPERACILLIN/TAZOB 4.5 GM 4.5 GM in DEXTROSE 5%-WATER 100 ML IVPB SCH ×3 (01:49→17:37)
[2019-08-20] MEDS: LACTATED RINGERS SOLUTION 1,000 ML/1,000 ML INFUS.BAG IV SCH (06:13)
--- NOTE | 2019-08-20 08:40 | PN ---
Progress Note (short form) - Note Progress Note: Anesthesia POD#3 S/P ERCP under [place] VSS, no N/V,food is advanced. No complication to anesthesia seen. Milady Paige MD.
[2019-08-20 08:53] LABS: BASO % 0.4 % (0-2.0); EOS % 3.2 % (0-4.5); HEMATOCRIT 39.7 % (35.4-49); HEMOGLOBIN 13.2 GM/dL (11.7-16.9); LYMPH % 41.3 % (8-40); MCH 29.5 pg (25.7-33.7); MCHC 33.4 g/dl (32.0-35.9); MEAN CELL VOLUME 88.5 fl (80-96); MONO % 10.6 % (3.8-10.2); NEUT % 44.5 % (42.8-82.8); PLATELET COUNT 339 K/MM3 (134-434); RBC 4.49 M/mm3 (4.00-5.60); RDW 14.2 % (11.9-15.9); WHITE BLOOD COUNT 5.9 K/mm3 (4.0-10.0)
[2019-08-20 09:26] LABS: ALBUMIN 2.7 g/dl (3.4-5.0); BILIRUBIN,TOTAL 2.1 mg/dL (0.2-1); BLOOD UREA NITROGEN 9.9 mg/dL (7-18); CALCIUM 8.8 mg/dL (8.5-10.1); POTASSIUM 4.2 mmol/L (3.5-5.1); TOT PROT 6.3 g/dl (6.4-8.2)
--- NOTE | 2019-08-20 10:27 | PN ---
Progress Note (short form) - Note Progress Note: Case d.w attending Dr Oliver Briefly, pt is a 79 y/o M w/ no known PMHx, admitted 08/16 for RUQ pain. Found to have Sepsis secondary to ascending cholangitis. Now S/p ERCP with removal of stones and stent insertion and drainage of pus on 08/17. Liver enzymes/T bili trending down Pt seen and examined, awake, alert, nad. Daughter at bedside. Pt reports no abdo pain. No n/v/d. Passing flatus. Pt planned for lap aydin tomorrow with Dr Oliver Continue NPO Please obtain full labs in am
[2019-08-20] MEDS ORDERED: LACTATED RINGERS SOLUTION 1,000 ML/1,000 ML INFUS.BAG IV SCH (12:50)
--- NOTE | 2019-08-20 13:46 | PN ---
Progress Note (short form) - Note Progress Note: GI f/u Patient seen eating lunch Denies abdominal pain Vital Signs Temp 9.4 F L 08/20/19 06:12 Pulse 63 08/20/19 06:12 Resp 20 08/20/19 06:12 BP 100/65 08/20/19 06:12 Pulse Ox 98 08/19/19 21:00 NAD Anicteric soft NT ND Labs reviewed - bilis and AST/ALT downtrending, but AP has plateaued Hepatic Panel Total Bilirubin 2.1 mg/dL (0.2-1) H 08/20/19 07:40 Direct Bilirubin 2.2 mg/dL (0.0-0.2) H 08/19/19 06:18 AST 59 U/L (15-37) H 08/20/19 07:40 ALT 108 U/L (13-61) H 08/20/19 07:40 Alkaline Phosphatase 273 U/L (45-117) H 08/20/19 07:40 Albumin 2.7 g/dl (3.4-5.0) L 08/20/19 07:40 Impression- cholangitis s/p ERCP with decompression and stent Cholecystectomy planned for tomorrow - suggest IOC at time of OR Continue to trend LFTs until normalize
--- NOTE | 2019-08-20 14:47 | PN ---
Progress Note (short form) - Note Progress Note: s/p ercp with multiple stones and pus 08/17 stent placed feels well no abdominal pain Vital Signs Period Temp Pulse Resp BP Sys/Akers Pulse Ox Last 24 Hr 9.4 F-98.2 F 63-91 17-20 100-105/65-68 98-98 cor-rrr lungs clear abd soft,nt ext no edema CBC, BMP 08/20/19 07:40 08/20/19 07:40 Microbiology 08/17/19 00:20 Blood - Peripheral Venous Blood Culture - Preliminary NO GROWTH OBTAINED AFTER 72 HOURS, INCUBATION TO CONTINUE FOR 2 DAYS. 08/17/19 00:04 Blood - Peripheral Venous Blood Culture - Preliminary NO GROWTH OBTAINED AFTER 72 HOURS, INCUBATION TO CONTINUE FOR 2 DAYS. a/p For lap choly in am s/p ercp with stent placement day #4 antibiotics- continue zosyn for now Problem List - Problems (1) Biliary sepsis Code(s): K83.09 - OTHER CHOLANGITIS (2) Choledocholithiasis with acute cholecystitis Code(s): K80.42 - CALCULUS OF BILE DUCT W ACUTE CHOLECYSTITIS W/O OBSTRUCTION
--- NOTE | 2019-08-20 15:18 | PN ---
Progress Note (short form) - Note Progress Note: surgery pt seen and examines. feels well. afebrile abd- soft,nt Plan- resolving cholangitis. s/p ercp/stone extraction, stent. will proceed with cholecystectomy. plan for tomorrow/tuesday 8am
--- NOTE | 2019-08-20 16:04 | PN ---
Physical Exam: SUBJECTIVE: Patient seen and examined. He has no complaints today. He denies abdominal pain, shortness of breath, fever, or chills. He is tolerating diet well. OBJECTIVE: Vital Signs Period Temp Pulse Resp BP Sys/Akers Pulse Ox Last 24 Hr 9.4 F-98.2 F 63-91 17-20 100-107/65-68 98-98 GENERAL: The patient is awake, alert, and fully oriented, in no acute distress. HEAD: Normal with no signs of trauma. EYES: PERRL, extraocular movements intact, sclera anicteric, conjunctiva clear. ENT: Ears normal, nares patent, moist mucous membranes. NECK: Trachea midline, full range of motion LUNGS: Bibasilar crackles HEART: Regular rate and rhythm, no murmur ABDOMEN: Soft, no tenderness on palpation, nondistended, normoactive bowel sounds, no guarding, no rebound EXTREMITIES: Warm, well-perfused, no edema. NEUROLOGICAL: Cranial nerves II through XII grossly intact. Normal speech. PSYCH: Normal mood, normal affect. SKIN: Warm, dry, normal turgor Laboratory Results - last 24 hr 08/20/19 08/20/19 07:40 07:40 WBC 5.9 RBC 4.49 Hgb 13.2 Hct 39.7 MCV 88.5 MCH 29.5 MCHC 33.4 RDW 14.2 Plt Count 339 MPV 8.0 Absolute Neuts (auto) 2.6 Neutrophils % 44.5 D Lymphocytes % 41.3 H D Monocytes % 10.6 H D Eosinophils % 3.2 D Basophils % 0.4 D Nucleated RBC % 0 Sodium 139 Potassium 4.2 Chloride 107 Carbon Dioxide 24 Anion Gap 8 BUN 9.9 Creatinine 1.0 Est GFR (CKD-EPI)AfAm 83.18 Est GFR (CKD-EPI)NonAf 71.77 Random Glucose 79 Calcium 8.8 Total Bilirubin 2.1 H AST 59 H ALT 108 H Alkaline Phosphatase 273 H Total Protein 6.3 L Albumin 2.7 L Active Medications Generic Name Dose Route Start Last Admin Trade Name Freq PRN Reason Stop Dose Admin Piperacillin Sod/Tazobactam 100 mls @ 200 mls/hr 08/17/19 18:00 08/20/19 11: 22 Sod 4.5 gm/ Dextrose IVPB 200 mls/hr Q8H-IV KAREN Administration Protocol Lactated Ringer's 1,000 ml in 1,000 mls @ 75 mls/hr 08/20/19 12:50 Lactated Ringers Solution IV ASDIR KAREN Ondansetron HCl 4 mg 08/17/19 00:34 Zofran Injection IVPUSH Q6H PRN NAUSEA Ondansetron HCl 4 mg 08/17/19 13:42 Zofran Injection IVPUSH Q6H PRN NAUSEA AND/OR VOMITING ASSESSMENT/PLAN: Mr. Kirkland is a 79y/o male with abdominal pain that began 2 months ago. Initial workup was negative and pt was started on omeprazole. Pain worsened over the last 3 days, so pt presented to the ED. #sepsis 2/2 cholecystitis and cholangitis, s/p ERCP day 3 -ERCP-stones removed and stent placed -planned cholecystectomy tomorrow -blood cx negative -Zosyn 4.5g Q8H (08/17) -Zofran PRN -LR 75mL/hr-fluids decreased -ID following -GI following -surgery following #transaminitis improved from admission -monitor for decrease #hyperbilirubinemia improved from admission -monitor DVT Ppx SCDs FEN LR 75mL/hr monitor labs NPO after midnight dispo cholecystectomy planned for tomorrow, possible d/c following day Visit type - Emergency Visit Emergency Visit: Yes ED Registration Date: 08/17/19 Care time: The patient presented to the Emergency Department on the above date and was hospitalized for further evaluation of their emergent condition. - New Patient This patient is new to me today: No - Critical Care Critical Care patient: No - Discharge Referral Referred to [facility] Med P.C.: No ATTENDING PHYSICIAN STATEMENT I saw and evaluated the patient. I reviewed the resident's note and discussed the case with the resident. I agree with the resident's findings and plan as documented. SUBJECTIVE: OBJECTIVE: ASSESSMENT AND PLAN:
[2019-08-21] MEDS ORDERED: PIPERACILLIN/TAZOBACTAM 4.5 GM VIAL IVPB ONE ×3 (00:42→17:16)
[2019-08-21] MEDS ORDERED: DEXTROSE 5%-WATER 100 ML IVPB ONE ×2 (00:42→17:16)
[2019-08-21] MEDS: PIPERACILLIN/TAZOB 4.5 GM 4.5 GM in DEXTROSE 5%-WATER 100 ML IVPB SCH ×2 (01:07→17:38)
[2019-08-21] MEDS ORDERED: fentaNYL CITRATE 250 MCG/5 ML VIAL ONE (07:29)
[2019-08-21] MEDS ORDERED: PROPOFOL 20 ML ONE ×3 (07:29→08:42)
[2019-08-21] MEDS ORDERED: MIDAZOLAM HCL 2 MG/2 ML SINGLE DOSE VIAL ONE (07:29)
[2019-08-21] MEDS ORDERED: DEXAMETHASONE SOD PHOSPHATE 4 MG/1 ML VIAL ONE (07:29)
[2019-08-21] MEDS ORDERED: BUPIVACAINE HCL/PF 0.5% (5 MG/ML) 30 ML VIAL IJ ONE (07:30)
[2019-08-21] MEDS ORDERED: ROCURONIUM BROMIDE 50 MG/5 ML SYRINGE ONE (07:31)
[2019-08-21] MEDS ORDERED: EPHEDRINE SULFATE/0.9% NACL/PF 50 MG/10 ML SYRINGE NR ONE (07:31)
[2019-08-21] MEDS ORDERED: SUCCINYLCHOLINE CHLORIDE 200 MG/10 ML SYRINGE ONE (07:32)
[2019-08-21] MEDS ORDERED: ONDANSETRON 4 MG/2 ML VIAL IVPUSH PRN ×3 (07:37→11:39)
[2019-08-21] MEDS ORDERED: HYDROmorphone HCl 2 MG/ML VIAL IVPUSH PRN ×4 (07:39→11:39)
[2019-08-21] MEDS ORDERED: LACTATED RINGERS SOLUTION 1,000 ML IV SCH (07:45)
[2019-08-21] MEDS ORDERED: ACETAMINOPHEN 325 MG TABLET (FP) PO PRN (08:14)
[2019-08-21] MEDS ORDERED: morphine SULFATE 4 MG/ML VIAL IVPB PRN (08:14)
[2019-08-21] MEDS ORDERED: LACTATED RINGERS SOLUTION 1,000 ML/1,000 ML INFUS.BAG IV SCH (08:14)
--- NOTE | 2019-08-21 08:18 | OP ---
Operative Note - Note: Operative Date: 08/21/19 Pre-Operative Diagnosis: cholangitis, choledocholithiasis, cholelithiasis Operation: laparoscopic cholecystectomy, lavage Findings: pale, edematous gb Post-Operative Diagnosis: Same as Pre-op Surgeon: Kapil Oliver Stud Driver: Garima Conroy Anesthesiologist/SQL REPORT WRITER: Marly Qureshi Anesthesia: General Specimens Removed: gb Estimated Blood Loss (mls): 30 Operative Report Dictated: Yes
[2019-08-21] MEDS ORDERED: NEOSTIGMINE METHYLSULFATE 0.5 MG/ML - 10 ML MDV ONE (08:36)
[2019-08-21] MEDS ORDERED: GLYCOPYRROLATE 0.2 MG/1 ML VIAL ONE (08:36)
--- NOTE | 2019-08-21 09:17 | PN ---
Progress Note (short form) - Note Progress Note: surgery s/p cholecystectomy. likely d/c tomorrow on regular diet if afebrile, voiding, ambulating, and tolerating diet. abx per id/gi for cholangitis, no cholecystitis. ok to shower. no lifting. f/u in 2 weeks. needs outpt gi f/u for stent. [phone].
[2019-08-21] MEDS ORDERED: HYDROmorphone HCl 2 MG/ML VIAL ONE (09:51)
[2019-08-21] MEDS: ENOXAPARIN NA (PORCINE) 40 MG/0.4 ML DISP.SYRIN SQ SCH (10:00)
--- NOTE | 2019-08-21 11:00 | OP ---
DATE OF OPERATION: 08/21/2019 PREOPERATIVE DIAGNOSIS: Choledocholithiasis, cholelithiasis, cholangitis. POSTOPERATIVE DIAGNOSIS: Choledocholithiasis, cholelithiasis, cholangitis. OPERATION: Laparoscopic cholecystectomy, lavage. SURGEON: Kapil Oliver DO ENDLESS STEAMER TENDER: FADUMO Hills ANESTHESIOLOGIST: Marly Qureshi MD INTRAOPERATIVE FINDINGS: A pale gallbladder minimally inflamed. BLOOD LOSS: Approximately 30 mL. DRAINS: None. SPECIMEN: Gallbladder. DISPOSITION: To recovery room in stable condition. BRIEF HISTORY: This is a 79-year-old male who presented to [facility] with cholangitis. He underwent an ERCP, stone extraction, and placement of a stent. He convalesced from his cholangitis, and he presents now for a cholecystectomy to prevent recurrence. DESCRIPTION OF PROCEDURE: The patient was placed in a supine position. General anesthesia was initiated. The abdomen was prepped and draped in sterile fashion. The patient was already on Zosyn antibiotic. Next, a transverse incision was made infraumbilical with scalpel used to go through skin and subcutaneous tissue. The fascia was then lifted with a Loraine clamp. Veress needle was inserted, and pneumoperitoneum was created. Next, an 11-mm trocar was placed followed by insertion of a 10-mm 0-degree laparoscope. An additional 11-mm trocar was placed subxiphoid, and two 5-mm trocars were placed right upper quadrant. Attention was then turned toward the gallbladder. It was pale, mildly edematous. There was an omental adhesion to it, which was carefully teased off. The fundus was at the cephalad. The infundibulum retracted laterally. The peritoneal peel was dissected down exposing the cystic duct and cystic artery. Both were clipped and divided. The gallbladder was then liberated from the liver bed using electrocautery, and hemostasis was maintained using electrocautery. The gallbladder was removed through the infraumbilical trocar site after a mild fascial dilatation and sent to Pathology marked as specimen. A limited lavage was done, and all return was clear. The trocars were removed under direct visualization as pneumoperitoneum was released , and no bleeding was noted. At this point, the fascia of the infraumbilical trocar site was closed with multiple interrupted 0 Vicryl sutures. The 4 skin incisions were closed with subcuticular Biosyn, and Dermabond dressing was placed. Overall, the patient tolerated the procedure well. There were no complications. The patient 's disposition is to the recovery room in stable condition. DO KARI MOREL/[id number] MTDD
--- NOTE | 2019-08-21 13:04 | SURG ---
Surgery Burnisher Note Burnisher: Garima Conroy PA-C Date of Service: 08/21/19 Diagnosis: cholangitis, choledocholithiasis, cholelithiasis Procedure: laparoscopic cholecystectomy, lavage I was present for the entirety of the operative procedure. For further detail, please refer to operative report. Visit type - Case Type Case Type: ED Admission - Emergency Emergency Visit: Yes ED Registration Date: 08/17/19 Care time: The patient presented to the Emergency Department on the above date and was hospitalized for further evaluation of their emergent condition. - New patient This patient is new to me today: Yes Date on this admission: 08/21/19
--- NOTE | 2019-08-21 13:36 | PN ---
Physical Exam: SUBJECTIVE: Patient seen and examined prior to surgery. He denies abdominal pain , nausea, vomiting, shortness of breath, or chest pain. He is tolerating diet well. OBJECTIVE: Vital Signs Period Temp Pulse Resp BP Sys/Akers Pulse Ox Last 24 Hr 97.8 F-98.4 F 64-86 10-20 107-132/58-79 95-99 GENERAL: The patient is awake, alert, and fully oriented, in no acute distress. HEAD: Normal with no signs of trauma. EYES: PERRL, extraocular movements intact, sclera anicteric, conjunctiva clear. ENT: Ears normal, nares patent, moist mucous membranes. NECK: Trachea midline, full range of motion LUNGS: Mild bibasilar crackles HEART: Regular rate and rhythm, no murmur ABDOMEN: Soft, no tenderness on palpation, nondistended, normoactive bowel sounds, no guarding, no rebound EXTREMITIES: Warm, well-perfused, no edema. NEUROLOGICAL: Cranial nerves II through XII grossly intact. Normal speech. PSYCH: Normal mood, normal affect. SKIN: Warm, dry, normal turgor Active Medications Generic Name Dose Route Start Last Admin Trade Name Freq PRN Reason Stop Dose Admin Acetaminophen 650 mg 08/21/19 08:14 Tylenol - PO Q4H PRN FEVER Enoxaparin Sodium 40 mg 08/21/19 10:00 Lovenox - SQ DAILY KAREN Hydromorphone HCl 0.5 mg 08/21/19 11:39 Dilaudid Vial - IVPUSH 08/22/19 07:38 [id number] PRN PAIN LEVEL 7 - 10 Hydromorphone HCl 0.25 mg 08/21/19 11:39 Dilaudid Vial - IVPUSH 08/22/19 07:39 [id number] PRN PAIN LEVEL 6-10 Lactated Ringer's 1,000 ml in 1,000 mls @ 100 mls/hr 08/21/19 08:14 08/21/19 13:00 Lactated Ringers Solution IV 100 mls/hr ASDIR KAREN Administration Piperacillin Sod/Tazobactam 100 mls @ 200 mls/hr 08/21/19 18:00 Sod 4.5 gm/ Dextrose IVPB Q8H-IV KAREN Protocol Morphine Sulfate 8 mg 08/21/19 08:14 Morphine Sulfate IVPB Q3H PRN PAIN LEVEL 7 - 10 Ondansetron HCl 4 mg 08/21/19 11:39 Zofran Injection IVPUSH Q6H PRN NAUSEA Ondansetron HCl 4 mg 08/21/19 11:39 Zofran Injection IVPUSH Q6H PRN NAUSEA AND/OR VOMITING Oxycodone HCl 7.5 mg 08/21/19 08:14 Roxicodone - PO Q4H PRN PAIN LEVEL 4 - 6 ASSESSMENT/PLAN: Mr. Kirkland is a 79y/o male with abdominal pain that began 2 months ago. Initial workup was negative and pt was started on omeprazole. Pain worsened over the last 3 days, so pt presented to the ED. #sepsis 2/2 cholecystitis and ascending cholangitis, improved s/p ERCP with stone removal and stent placement POD 0 cholecystectomy -blood cx negative -Zosyn 4.5g Q8H (08/17) -Zofran PRN -LR 75mL/hr- may d/c later if doing well -ID following -GI following -surgery following -likely PO abx at discharge #transaminitis improved from admission -check labs tomorrow #hyperbilirubinemia improved from admission -check labs tomorrow DVT Ppx SCDs FEN LR 75mL/hr monitor labs regular diet dispo monitor on med/surg, poss d/c tomorrow if stable Visit type - Emergency Visit Emergency Visit: Yes ED Registration Date: 08/17/19 Care time: The patient presented to the Emergency Department on the above date and was hospitalized for further evaluation of their emergent condition. - New Patient This patient is new to me today: No - Critical Care Critical Care patient: No - Discharge Referral Referred to [facility] Med P.C.: No ATTENDING PHYSICIAN STATEMENT I saw and evaluated the patient. I reviewed the resident's note and discussed the case with the resident. I agree with the resident's findings and plan as documented. SUBJECTIVE: OBJECTIVE: ASSESSMENT AND PLAN:
[2019-08-21] MEDS ORDERED: PT OWN MED DRAWER 7, Y5N ONE (15:10)
--- NOTE | 2019-08-21 16:25 | PN ---
Progress Note (short form) - Note Progress Note: s/p ercp with multiple stones and pus 08/17 stent placed s/p lap choly today feels well tolerating liquids some RUQ discomfort Vital Signs Period Temp Pulse Resp BP Sys/Akers Pulse Ox Last 24 Hr 97.5 F-98.4 F 64-84 10-20 109-132/58-79 95-99 cor-rrr lungs clear abd soft, mild RUQ discomfort to palpation ext no edema CBC, BMP 08/20/19 07:40 08/20/19 07:40 Microbiology 08/17/19 00:20 Blood - Peripheral Venous Blood Culture - Preliminary NO GROWTH OBTAINED AFTER 96 HOURS, INCUBATION TO CONTINUE FOR 1 DAYS. 08/17/19 00:04 Blood - Peripheral Venous Blood Culture - Preliminary NO GROWTH OBTAINED AFTER 96 HOURS, INCUBATION TO CONTINUE FOR 1 DAYS. a/p s/p lap choly s/p ercp with stent placement day # 5 antibiotics- zosyn doing well surgery to decide whether patient needs antibiotics at discharge- based on operative findings Problem List - Problems (1) Biliary sepsis Code(s): K83.09 - OTHER CHOLANGITIS (2) Choledocholithiasis with acute cholecystitis Code(s): K80.42 - CALCULUS OF BILE DUCT W ACUTE CHOLECYSTITIS W/O OBSTRUCTION
--- NOTE | 2019-08-21 17:16 | PN.GI ---
GI Progress Note Subjective: Daughters present at bedside S/P Lap Mckayla this morning Pain at trochar sites - Objective Vital Signs: Vital Signs Temperature 97.5 F L 08/21/19 15:21 Pulse Rate 83 08/21/19 15:21 Respiratory Rate 18 08/21/19 15:21 Blood Pressure 109/66 08/21/19 15:21 O2 Sat by Pulse Oximetry (%) 96 08/21/19 12:14 Constitutional: Calm Eyes: No: Sclera Icterus Cardiovascular: Yes: Regular Rate and Rhythm Respiratory: Yes: CTA Bilaterally Gastrointestinal Inspection: No: Distention ...Auscultate: Yes: Normoactive Bowel Sounds ...Palpate: Yes: Soft, Tenderness (TTP at trochar sites) ...Percussion: No: Tympanitic Edema: No (No LE edema) Neurological: Yes: Alert Labs: CBC, BMP 08/20/19 07:40 08/20/19 07:40 INR, PTT INR 1.18 (0.83-1.09) H 08/17/19 10:20 Hepatic Panel Total Bilirubin 2.1 mg/dL (0.2-1) H 08/20/19 07:40 Direct Bilirubin 2.2 mg/dL (0.0-0.2) H 08/19/19 06:18 AST 59 U/L (15-37) H 08/20/19 07:40 ALT 108 U/L (13-61) H 08/20/19 07:40 Alkaline Phosphatase 273 U/L (45-117) H 08/20/19 07:40 Albumin 2.7 g/dl (3.4-5.0) L 08/20/19 07:40 Problem List - Problems (1) Acute cholangitis Assessment/Plan: Bilirubin trending down and WBC's normalized Monitor LFTs Continue IV Abx Post op care per surgery Will need biliary stent removed in 2-3 months Code(s): K83.09 - OTHER CHOLANGITIS
[2019-08-21] MEDS: oxyCODONE HCL 5 MG TABLET PO PRN (17:46)
--- NOTE | 2019-08-21 18:57 | PN ---
Teaching Attending Note Name of Resident: Yamila Khan ATTENDING PHYSICIAN STATEMENT I saw and evaluated the patient. I reviewed the resident's note and discussed the case with the resident. I agree with the resident's findings and plan as documented. SUBJECTIVE: No fever or chills. minimal abd pain. no SOB OBJECTIVE: NAD. Pleasant and cooperative MMM CV: RRR. no MRG. Lungs: crackles at L base Ext: No edema or erythema. Abd: soft, minimal discomfort around laparoscopic incisions, ND, hypoactive BS. ASSESSMENT AND PLAN: 79 y/o gentleman with possible h/o GERD who presented with Abd pain and nausea and vomiting. he was found to have ascending cholangitis . 1- Sepsis due to ascedning cholangitis and cholecystitis . sepsis resolved . S/ p ERCP with removal of stones and drainage of pus. stent placement. - s/p CCY today. pale and edematous gall bladder was found -Monitor LFTs - cont zosyn. will d/w Sx and ID in am. ? complete 7 days of Abx. if yes , will switch to po tomorrow - add heparin sq - dc IVF . started having crackles - regular diet Possible dc tomorrow with follow up with GI.
[2019-08-21] MEDS ORDERED: HEPARIN NA (PORCINE) 5,000 UNITS/ML 1ML VIAL SQ SCH (22:00)
[2019-08-22] MEDS ORDERED: PIPERACILLIN/TAZOBACTAM 4.5 GM VIAL IVPB ONE ×3 (01:45→16:27)
[2019-08-22] MEDS ORDERED: DEXTROSE 5%-WATER 100 ML IVPB ONE ×3 (01:46→16:27)
[2019-08-22] MEDS: PIPERACILLIN/TAZOB 4.5 GM 4.5 GM in DEXTROSE 5%-WATER 100 ML IVPB SCH ×3 (01:55→17:46)
[2019-08-22 08:13] LABS: HEMATOCRIT 38.7 % (35.4-49); MCH 29.8 pg (25.7-33.7); MCHC 33.6 g/dl (32.0-35.9); MEAN CELL VOLUME 88.6 fl (80-96); MEAN PLT VOLUME 7.7 fl (7.5-11.1); PLATELET COUNT 406 K/MM3 (134-434); RBC 4.37 M/mm3 (4.00-5.60); RDW 14.1 % (11.9-15.9); WHITE BLOOD COUNT 10.7 K/mm3 (4.0-10.0)
[2019-08-22 08:42] LABS: ALBUMIN 2.9 g/dl (3.4-5.0); BILIRUBIN,DIRECT 0.8 mg/dL (0.0-0.2); BILIRUBIN,TOTAL 1.3 mg/dL (0.2-1); BLOOD UREA NITROGEN 11.7 mg/dL (7-18); CALCIUM 8.8 mg/dL (8.5-10.1); CREATININE 1.1 mg/dL (0.55-1.3); POTASSIUM 4.5 mmol/L (3.5-5.1); TOT PROT 6.6 g/dl (6.4-8.2)
--- NOTE | 2019-08-22 08:58 | PN ---
Progress Note (short form) - Note Progress Note: POD#1 laparoscopic cholecystectomy, lavage Patient seen and examined at bedside with no complaints. Patient states he has minimal pain and has been OOB ambulating to the bathroom to void. He denies any CP, SOB, N/V, fever or chills. Vital Signs Temp 97.9 F 12/01/05 05:30 Pulse 76 08/22/19 05:30 Resp 20 08/22/19 05:30 BP 121/66 08/22/19 05:30 Pulse Ox 96 08/21/19 12:14 Intake & Output 08/21/19 08/21/19 08/22/19 11:59 23:59 11:59 Intake Total 1900 1000 Output Total 30 200 Balance 1870 800 Intake: IV 1900 600 LACTATED RINGERS SOLUTION 600 1,000 ml In 1,000 ml @ 100 mls/hr IV ASDIR KAREN Rx#:[id number] IVPB 100 Oral 300 Output: Urine 200 Void 200 Estimated Blood Loss 30 Other: Voiding Method Toilet Toilet # Unmeasured Voids Void 2 2 Bowel Movement No No CBC, BMP 08/22/19 06:58 08/22/19 06:58 PE: A&Ox3, NAD Unlabored resp on RA ABD: Soft, minimal TTP throughout appropriate to status, ND, Incision sites c/d/ I with surrounding tissue intact and no evidence of tracking erythema, no evidence of collection or active d/c. B/L LE compartments soft, supple and non-tender with +DP pulses. Problem List - Problems (1) Choledocholithiasis with acute cholecystitis Assessment/Plan: POD #1 Lap aydin doing well. 1) Regular diet 2) ABX per ID 3) Trend labs 4) DVT prophylaxis 5) OOB as tolerated. Code(s): K80.42 - CALCULUS OF BILE DUCT W ACUTE CHOLECYSTITIS W/O OBSTRUCTION
[2019-08-22] MEDS: ENOXAPARIN NA (PORCINE) 40 MG/0.4 ML DISP.SYRIN SQ SCH (09:00)
[2019-08-22] MEDS: oxyCODONE HCL 5 MG TABLET PO PRN ×2 (09:00→17:50)
--- NOTE | 2019-08-22 09:28 | PN ---
Teaching Attending Note Name of Resident: Stas Rodriguez ATTENDING PHYSICIAN STATEMENT I saw and evaluated the patient. I reviewed the resident's note and discussed the case with the resident. I agree with the resident's findings and plan as documented. SUBJECTIVE: Patient is feeling better with no acute distress. OBJECTIVE: Vital Signs Temperature 98.1 F 08/22/19 08:58 Pulse Rate 87 08/22/19 08:58 Respiratory Rate 20 08/22/19 08:58 Blood Pressure 95/55 L 08/22/19 08:58 O2 Sat by Pulse Oximetry (%) 96 08/21/19 12:14 GENERAL: The patient is awake, alert, and fully oriented, in no acute distress. HEAD: Normal with no signs of trauma. EYES: PERRL, extraocular movements intact, sclera anicteric, conjunctiva clear. ENT: Ears normal, oropharynx clear without exudates, moist mucous membranes. NECK: Trachea midline, full range of motion, supple. LUNGS: Breath sounds equal, clear to auscultation bilaterally, no wheezes, no crackles, no accessory muscle use. HEART: Regular rate and rhythm, S1, S2 without murmur, rub or gallop. ABDOMEN: Soft, Nt,ND, normoactive bowel sounds, no guarding, no rebound, no hepatosplenomegaly, no masses. EXTREMITIES: 2+ pulses, warm, well-perfused, no edema. NEUROLOGICAL: Cranial nerves II through XII grossly intact. Normal speech, gait not observed. PSYCH: Normal mood, normal affect. SKIN: Warm, dry, normal turgor, no rashes or lesions noted CBCD WBC 10.7 K/mm3 (4.0-10.0) H 08/22/19 06:58 RBC 4.37 M/mm3 (4.00-5.60) 08/22/19 06:58 Hgb 13.0 GM/dL (11.7-16.9) 08/22/19 06:58 Hct 38.7 % (35.4-49) 08/22/19 06:58 MCV 88.6 fl (80-96) 08/22/19 06:58 MCHC 33.6 g/dl (32.0-35.9) 08/22/19 06:58 RDW 14.1 % (11.9-15.9) 08/22/19 06:58 Plt Count 406 K/MM3 (134-434) 08/22/19 06:58 MPV 7.7 fl (7.5-11.1) 08/22/19 06:58 CMP Sodium 137 mmol/L (136-145) 08/22/19 06:58 Potassium 4.5 mmol/L (3.5-5.1) 08/22/19 06:58 Chloride 103 mmol/L (98-107) 08/22/19 06:58 Carbon Dioxide 26 mmol/L (21-32) 08/22/19 06:58 Anion Gap 7 MMOL/L (8-16) L 08/22/19 06:58 BUN 11.7 mg/dL (7-18) 08/22/19 06:58 Creatinine 1.1 mg/dL (0.55-1.3) 08/22/19 06:58 Random Glucose 94 mg/dL (74-106) 08/22/19 06:58 Calcium 8.8 mg/dL (8.5-10.1) 08/22/19 06:58 Total Bilirubin 1.3 mg/dL (0.2-1) H 08/22/19 06:58 AST 68 U/L (15-37) H 08/22/19 06:58 ALT 112 U/L (13-61) H 08/22/19 06:58 Alkaline Phosphatase 242 U/L (45-117) H 08/22/19 06:58 Total Protein 6.6 g/dl (6.4-8.2) 08/22/19 06:58 Albumin 2.9 g/dl (3.4-5.0) L 08/22/19 06:58 CARDIAC ENZYMES Troponin I < 0.02 ng/ml (0.00-0.05) 08/16/19 18:30 Home Medications Medication Instructions Recorded Omeprazole 40 mg PO DAILY 08/16/19 Current Medications Generic Name Dose Route Start Last Admin Trade Name Freq PRN Reason Stop Dose Admin Acetaminophen 650 mg 08/21/19 08:14 Tylenol - PO Q4H PRN FEVER Enoxaparin Sodium 40 mg 08/21/19 10:00 08/22/19 09:00 Lovenox - SQ 40 mg DAILY KAREN Administration Piperacillin Sod/Tazobactam 100 mls @ 200 mls/hr 08/21/19 18:00 08/22/19 17: 46 Sod 4.5 gm/ Dextrose IVPB 200 mls/hr Q8H-IV KAREN Administration Protocol Morphine Sulfate 8 mg 08/21/19 08:14 Morphine Sulfate IVPB Q3H PRN PAIN LEVEL 7 - 10 Ondansetron HCl 4 mg 08/21/19 11:39 Zofran Injection IVPUSH Q6H PRN NAUSEA Ondansetron HCl 4 mg 08/21/19 11:39 Zofran Injection IVPUSH Q6H PRN NAUSEA AND/OR VOMITING Oxycodone HCl 7.5 mg 08/21/19 08:14 08/22/19 17:50 Roxicodone - PO 7.5 mg Q4H PRN Administration PAIN LEVEL 4 - 6 Microbiology 08/17/19 00:20 Blood - Peripheral Venous Blood Culture - Final NO GROWTH AFTER 5 DAYS INCUBATION 08/17/19 00:04 Blood - Peripheral Venous Blood Culture - Final NO GROWTH AFTER 5 DAYS INCUBATION Laboratory Tests 08/17/19 08/18/19 08/18/19 08:05 08:00 08:00 Total Bilirubin 5.2 H D 4.5 H Direct Bilirubin 3.9 H 3.6 H AST 89 H 88 H ALT 105 H 115 H Alkaline Phosphatase 233 H 202 H 08/19/19 08/20/19 08/22/19 06:18 07:40 06:58 Total Bilirubin 3.1 H 2.1 H 1.3 H Direct Bilirubin 2.2 H 0.8 H AST 86 H 59 H 68 H ALT 125 H 108 H 112 H Alkaline Phosphatase 240 H 273 H 242 H ASSESSMENT AND PLAN: Patient is a 79yo male with PMHx of GERD who presented with Abdomial pain and nausea and vomiting. he was found to have acute ascending cholangitis . #s/p Sepsis due to ascedning cholangitis and cholecystitis . s/p ERCP with removal of stones and drainage of pus. stent placement. s/p CCY on 08/21/2019 Monitor LFTs improving , cont Iv zosyn. will d/w Sx and ID in am whether to continue and complete 7 days of Abx. #s/p acute ascending cholangitis # s/p acute cholecystitis on IV antibiotics, will follow the cx and wbc DVT px: heparin sq regular diet Possible dc with follow up with GI. and surgery , will check with ID and surgery whether antibiotic is needed as an outpatient.
--- NOTE | 2019-08-22 13:25 | PN ---
Progress Note (short form) - Note Progress Note: Anesthesia postop note 79 y/o M s/p GA for laparoscopic cholecystectomy POD#1, vss, aaox3, no complaints. No anesthesia complications.
--- NOTE | 2019-08-22 13:34 | PN ---
Physical Exam: SUBJECTIVE: Patient seen and examined. He reports 3/10 pain that is at the incisions. He denies fever, chills, n/v. + flatus. He is tolerating diet well. OBJECTIVE: Vital Signs Period Temp Pulse Resp BP Sys/Akers Pulse Ox Last 24 Hr 97.5 F-98.7 F 76-87 18-20 95-121/55-70 97 GENERAL: The patient is awake, alert, and fully oriented, in no acute distress. HEAD: Normal with no signs of trauma. EYES: PERRL, extraocular movements intact, sclera anicteric, conjunctiva clear. ENT: Ears normal, nares patent, moist mucous membranes. NECK: Trachea midline, full range of motion LUNGS: Clear to auscultation HEART: Regular rate and rhythm, no murmur ABDOMEN: Soft, minimal tenderness on palpation, nondistended, normoactive bowel sounds, no guarding, no rebound EXTREMITIES: Warm, well-perfused, no edema. NEUROLOGICAL: Cranial nerves II through XII grossly intact. Normal speech. PSYCH: Normal mood, normal affect. SKIN: Warm, dry, normal turgor Laboratory Results - last 24 hr 08/22/19 08/22/19 06:58 06:58 WBC 10.7 H RBC 4.37 Hgb 13.0 Hct 38.7 MCV 88.6 MCH 29.8 MCHC 33.6 RDW 14.1 Plt Count 406 MPV 7.7 Sodium 137 Potassium 4.5 Chloride 103 Carbon Dioxide 26 Anion Gap 7 L BUN 11.7 Creatinine 1.1 Est GFR (CKD-EPI)AfAm 74.13 Est GFR (CKD-EPI)NonAf 63.96 Random Glucose 94 Calcium 8.8 Total Bilirubin 1.3 H Direct Bilirubin 0.8 H AST 68 H ALT 112 H Alkaline Phosphatase 242 H Total Protein 6.6 Albumin 2.9 L Active Medications Generic Name Dose Route Start Last Admin Trade Name Freq PRN Reason Stop Dose Admin Acetaminophen 650 mg 08/21/19 08:14 Tylenol - PO Q4H PRN FEVER Enoxaparin Sodium 40 mg 08/21/19 10:00 08/22/19 09:00 Lovenox - SQ 40 mg DAILY KAREN Administration Piperacillin Sod/Tazobactam 100 mls @ 200 mls/hr 08/21/19 18:00 08/22/19 09: 00 Sod 4.5 gm/ Dextrose IVPB 200 mls/hr Q8H-IV KAREN Administration Protocol Morphine Sulfate 8 mg 08/21/19 08:14 Morphine Sulfate IVPB Q3H PRN PAIN LEVEL 7 - 10 Ondansetron HCl 4 mg 08/21/19 11:39 Zofran Injection IVPUSH Q6H PRN NAUSEA Ondansetron HCl 4 mg 08/21/19 11:39 Zofran Injection IVPUSH Q6H PRN NAUSEA AND/OR VOMITING Oxycodone HCl 7.5 mg 08/21/19 08:14 08/22/19 09:00 Roxicodone - PO 7.5 mg Q4H PRN Administration PAIN LEVEL 4 - 6 ASSESSMENT/PLAN: Mr. Kirkland is a 79y/o male with abdominal pain that began 2 months ago. Initial workup was negative and pt was started on omeprazole. Pain worsened over the last 3 days, so pt presented to the ED. #leukocytosis 10.7. No fever. -repeat labs tomorrow #sepsis 2/2 cholecystitis and ascending cholangitis, improved s/p ERCP with stone removal and stent placement POD 1 cholecystectomy -blood cx negative -Zosyn 4.5g Q8H (08/17) -Zofran PRN -ID following -GI following -surgery following -likely PO abx at discharge #transaminitis improved from admission, slight bump AST/ALT overnight -check labs tomorrow #hyperbilirubinemia improved from admission DVT Ppx SCDs FEN PO fluids monitor labs regular diet dispo monitor on med/surg, poss d/c tomorrow if stable Visit type - Emergency Visit Emergency Visit: Yes ED Registration Date: 08/17/19 Care time: The patient presented to the Emergency Department on the above date and was hospitalized for further evaluation of their emergent condition. - New Patient This patient is new to me today: No - Critical Care Critical Care patient: No - Discharge Referral Referred to [facility] No ATTENDING PHYSICIAN STATEMENT I saw and evaluated the patient. I reviewed the resident's note and discussed the case with the resident. I agree with the resident's findings and plan as documented. SUBJECTIVE: OBJECTIVE: ASSESSMENT AND PLAN:
--- NOTE | 2019-08-22 15:44 | PN ---
Progress Note (short form) - Note Progress Note: Doing well post-op from cholecystectomy follwoing cholangitis with stone removal , drainage. Limitied abdominal pain. No fevers. Abd soft, wounds intact GI will sign off for now. Likely discharge today.
--- NOTE | 2019-08-22 17:10 | PATH ---
Surgical Pathology Report Patient Name: BARNEY SHI [facility]. Rec. #: [id number] /Age/Gender: 1940 (Age: 79) / M Account: [id number] Location: [address] [place] [address] Taken: 08/21/2019 Received: 08/21/2019 Reported: 08/22/2019 Physicians: Eleazar Mallory M.D. Specimen(s) Received GALLBLADDER Clinical History Cholangitis, choledocholithiasis, cholelithiasis Final Diagnosis GALLBLADDER, CHOLECYSTECTOMY: ACUTE CHOLECYSTITIS SUPERIMPOSED ON FOLLICULAR CHOLECYSTITIS. Electronically Signed Nelson Carreno M.D. Gross Description Received in formalin, labeled "gallbladder," is a 9.0 x 2.8 x 2.2 cm. gallbladder with a 0.4 cm. in length portion of cystic duct attached. The outer surface is klein-pink and varies from smooth to shaggy. The lumen contains green, tenacious bile. No choleliths are identified within the lumen or within the container. The mucosa is klein-brown and velvety. The wall of the gallbladder averages 0.1 cm. in thickness. Oceanology Teacher sections are submitted in one cassette. /08/21/201908/21/2019
[2019-08-23] MEDS ORDERED: DEXTROSE 5%-WATER 100 ML IVPB ONE ×3 (01:12→16:39)
[2019-08-23] MEDS ORDERED: PIPERACILLIN/TAZOBACTAM 4.5 GM VIAL IVPB ONE ×3 (01:12→16:39)
[2019-08-23] MEDS: PIPERACILLIN/TAZOB 4.5 GM 4.5 GM in DEXTROSE 5%-WATER 100 ML IVPB SCH ×3 (01:15→17:02)
[2019-08-23 08:49] LABS: HEMOGLOBIN 14.7 GM/dL (11.7-16.9); MCH 29.8 pg (25.7-33.7); MCHC 33.4 g/dl (32.0-35.9); MEAN CELL VOLUME 89.3 fl (80-96); MEAN PLT VOLUME 7.5 fl (7.5-11.1); PLATELET COUNT 447 K/MM3 (134-434); RBC 4.92 M/mm3 (4.00-5.60); RDW 14.3 % (11.9-15.9); WHITE BLOOD COUNT 11.1 K/mm3 (4.0-10.0)
[2019-08-23] MEDS: ENOXAPARIN NA (PORCINE) 40 MG/0.4 ML DISP.SYRIN SQ SCH (09:16)
[2019-08-23 09:42] LABS: ALBUMIN 3.2 g/dl (3.4-5.0); BILIRUBIN,DIRECT 0.9 mg/dL (0.0-0.2); BILIRUBIN,TOTAL 1.6 mg/dL (0.2-1); BLOOD UREA NITROGEN 13.4 mg/dL (7-18); CALCIUM 9.4 mg/dL (8.5-10.1); CREATININE 1.2 mg/dL (0.55-1.3); POTASSIUM 4.1 mmol/L (3.5-5.1); TOT PROT 7.8 g/dl (6.4-8.2)
--- NOTE | 2019-08-23 14:28 | PN ---
Progress Note (short form) - Note Progress Note: surgery pt seen and examined. complains of mild constipation. voiding afebrile abd- soft, nt, nd, incisions clean mildly elevated lfts and wbc Plan- remains surgically stable for d/c. mild lfts and nausea possibly from stent. abx per ID/GI. will follow as outpt in about 2 weeks. no evidence of postoperative complication.
[2019-08-23] MEDS ORDERED: GLYCERIN 1 RECTAL SUPPOSITORY, ADULT PR ONE (14:43)
[2019-08-23] MEDS: POLYETHYLENE GLYCOL 3350 119 GM BTL PO SCH ×2 (14:58→21:55)
--- NOTE | 2019-08-23 15:22 | PN ---
Teaching Attending Note Name of Resident: Yamila Khan ATTENDING PHYSICIAN STATEMENT I saw and evaluated the patient. I reviewed the resident's note and discussed the case with the resident. I agree with the resident's findings and plan as documented. SUBJECTIVE: Patient is feeling better but feels nauseated. no fever or vomiting. Daughter at bedside. OBJECTIVE: Vital Signs Temperature 98.3 F 08/23/19 13:15 Pulse Rate 116 H 08/23/19 13:15 Respiratory Rate 20 08/23/19 13:15 Blood Pressure 93/58 L 08/23/19 13:15 O2 Sat by Pulse Oximetry (%) 96 08/23/19 09:00 GENERAL: The patient is awake, alert, and fully oriented, in no acute distress. HEAD: Normal with no signs of trauma. EYES: PERRL, extraocular movements intact, sclera anicteric, conjunctiva clear. ENT: Ears normal, oropharynx clear without exudates, moist mucous membranes. NECK: Trachea midline, full range of motion, supple. LUNGS: Breath sounds equal, clear to auscultation bilaterally, no wheezes, no crackles, no accessory muscle use. HEART: tachycardic , S1, S2 without murmur, rub or gallop. ABDOMEN: Soft, Nt,ND, normoactive bowel sounds, no guarding, no rebound, no hepatosplenomegaly, no masses. EXTREMITIES: 2+ pulses, warm, well-perfused, no edema. NEUROLOGICAL: Cranial nerves II through XII grossly intact. Normal speech, gait not observed. PSYCH: Normal mood, normal affect. SKIN: Warm, dry, normal turgor, no rashes or lesions noted CBCD WBC 10.7 K/mm3 (4.0-10.0) H 08/22/19 06:58 RBC 4.37 M/mm3 (4.00-5.60) 08/22/19 06:58 Hgb 13.0 GM/dL (11.7-16.9) 08/22/19 06:58 Hct 38.7 % (35.4-49) 08/22/19 06:58 MCV 88.6 fl (80-96) 08/22/19 06:58 MCHC 33.6 g/dl (32.0-35.9) 08/22/19 06:58 RDW 14.1 % (11.9-15.9) 08/22/19 06:58 Plt Count 406 K/MM3 (134-434) 08/22/19 06:58 MPV 7.7 fl (7.5-11.1) 08/22/19 06:58 CMP Sodium 137 mmol/L (136-145) 08/22/19 06:58 Potassium 4.5 mmol/L (3.5-5.1) 08/22/19 06:58 Chloride 103 mmol/L (98-107) 08/22/19 06:58 Carbon Dioxide 26 mmol/L (21-32) 08/22/19 06:58 Anion Gap 7 MMOL/L (8-16) L 08/22/19 06:58 BUN 11.7 mg/dL (7-18) 08/22/19 06:58 Creatinine 1.1 mg/dL (0.55-1.3) 08/22/19 06:58 Random Glucose 94 mg/dL (74-106) 08/22/19 06:58 Calcium 8.8 mg/dL (8.5-10.1) 08/22/19 06:58 Total Bilirubin 1.3 mg/dL (0.2-1) H 08/22/19 06:58 AST 68 U/L (15-37) H 08/22/19 06:58 ALT 112 U/L (13-61) H 08/22/19 06:58 Alkaline Phosphatase 242 U/L (45-117) H 08/22/19 06:58 Total Protein 6.6 g/dl (6.4-8.2) 08/22/19 06:58 Albumin 2.9 g/dl (3.4-5.0) L 08/22/19 06:58 CARDIAC ENZYMES Troponin I < 0.02 ng/ml (0.00-0.05) 08/16/19 18:30 Home Medications Medication Instructions Recorded Omeprazole 40 mg PO DAILY 08/16/19 Current Medications Generic Name Dose Route Start Last Admin Trade Name Freq PRN Reason Stop Dose Admin Acetaminophen 650 mg 08/21/19 08:14 Tylenol - PO Q4H PRN FEVER Enoxaparin Sodium 40 mg 08/21/19 10:00 08/23/19 09:16 Lovenox - SQ 40 mg DAILY KAREN Administration Piperacillin Sod/Tazobactam 100 mls @ 200 mls/hr 08/21/19 18:00 08/23/19 09: 16 Sod 4.5 gm/ Dextrose IVPB 200 mls/hr Q8H-IV KAREN Administration Protocol Sodium Chloride 1,000 mls @ 100 mls/hr 08/23/19 15:30 08/23/19 15:25 Normal Saline - IV 08/25/19 01:29 100 mls/hr ASDIR KAREN Administration Ondansetron HCl 4 mg 08/21/19 11:39 08/23/19 09:36 Zofran Injection IVPUSH 4 mg Q6H PRN Administration NAUSEA Ondansetron HCl 4 mg 08/21/19 11:39 Zofran Injection IVPUSH Q6H PRN NAUSEA AND/OR VOMITING Polyethylene Glycol 17 gm 08/23/19 14:30 08/23/19 14:58 Miralax (For Daily Use) - PO 17 grams BID KAREN Administration Microbiology 08/17/19 00:20 Blood - Peripheral Venous Blood Culture - Final NO GROWTH AFTER 5 DAYS INCUBATION 08/17/19 00:04 Blood - Peripheral Venous Blood Culture - Final NO GROWTH AFTER 5 DAYS INCUBATION Laboratory Tests 08/17/19 08/18/19 08/18/19 08:05 08:00 08:00 Total Bilirubin 5.2 H D 4.5 H Direct Bilirubin 3.9 H 3.6 H AST 89 H 88 H ALT 105 H 115 H Alkaline Phosphatase 233 H 202 H 08/19/19 08/20/19 08/22/19 06:18 07:40 06:58 Total Bilirubin 3.1 H 2.1 H 1.3 H Direct Bilirubin 2.2 H 0.8 H AST 86 H 59 H 68 H ALT 125 H 108 H 112 H Alkaline Phosphatase 240 H 273 H 242 H ASSESSMENT AND PLAN: Patient is a 79yo male with PMHx of GERD who presented with Abdominal pain and nausea and vomiting. he was found to have acute ascending cholangitis . #s/p Sepsis due to ascedning cholangitis and cholecystitis . s/p ERCP with removal of stones and drainage of pus. stent placement on 08/21/2019. s/p CCY on 08/21/2019 , continue to monitor LFTs since slightely trending up with elevated Bilirubin, cont IV zosyn. discussed with Dr. Alberto and Dr. Fleming, to continue to watch the patient and at the time of dc to send the patient out on Actigall 300mg po bid, and cipro with flagyl , follow up with GI in 2 weeks and afterward for strent removal . # Hypotension slightly: IVF ordered, will monitor #s/p acute ascending cholangitis on IV antibiotics, s/p ERCP with stent , follow up with Dr. fleming for stent removal # s/p acute cholecystitis on IV antibiotics continue will follow the cx and wbc DVT px: heparin sq regular diet Possible dc with follow up with GI. and surgery, will continue to trend the CMP , bilirubin.
[2019-08-23] MEDS: SODIUM CHLORIDE 1,000 ML IV SCH (15:25)
--- NOTE | 2019-08-23 16:21 | PN ---
Progress Note (short form) - Note Progress Note: s/p ercp with multiple stones and pus 08/17 stent placed s/p lap choly 12/ pod #2 had a BM now feels improved tachycardia resolved repeat hr is 80 now- after BM today Vital Signs Period Temp Pulse Resp BP Sys/Akers Pulse Ox Last 24 Hr 98.3 F-98.5 F 74-116 19-20 93-137/53-64 96 cor-rrr lungs clear abd soft,nt ext no edema CBC, BMP 08/23/19 08:25 08/23/19 08:25 Microbiology 08/17/19 00:20 Blood - Peripheral Venous Blood Culture - Final NO GROWTH AFTER 5 DAYS INCUBATION 08/17/19 00:04 Blood - Peripheral Venous Blood Culture - Final NO GROWTH AFTER 5 DAYS INCUBATION a/p s/p lap choly s/p ercp with stent placement day # 7 antibiotics- zosyn doing well can d/c zosyn in am - will have completed 7 days repeat labs in am d/w daughter at bedside Problem List - Problems (1) Biliary sepsis Code(s): K83.09 - OTHER CHOLANGITIS (2) Choledocholithiasis with acute cholecystitis Code(s): K80.42 - CALCULUS OF BILE DUCT W ACUTE CHOLECYSTITIS W/O OBSTRUCTION
--- NOTE | 2019-08-23 17:09 | PN ---
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 He denies abdominal pain. He passed flatus but no BM. Later seen in the afternoon. Complaining of abdominal pain and nausea. He had a small BM prior to med administration. OBJECTIVE: Vital Signs Period Temp Pulse Resp BP Sys/Akers Pulse Ox Last 24 Hr 98.3 F-98.5 F 74-116 19-20 93-137/53-64 96 GENERAL: The patient is awake, alert, and fully oriented, in no acute distress. HEAD: Normal with no signs of trauma. EYES: PERRL, extraocular movements intact, sclera anicteric, conjunctiva clear. ENT: Ears normal, nares patent, moist mucous membranes. NECK: Trachea midline, full range of motion LUNGS: Clear to auscultation HEART: Regular rate and rhythm, no murmur ABDOMEN: Soft, minimal tenderness on palpation, nondistended, normoactive bowel sounds, no guarding, no rebound, surgical incisions present EXTREMITIES: Warm, well-perfused, no edema. NEUROLOGICAL: Cranial nerves II through XII grossly intact. Normal speech. PSYCH: Normal mood, normal affect. SKIN: Warm, dry, normal turgor Laboratory Results - last 24 hr 08/23/19 08/23/19 08:25 08:25 WBC 11.1 H RBC 4.92 Hgb 14.7 Hct 44.0 MCV 89.3 MCH 29.8 MCHC 33.4 RDW 14.3 Plt Count 447 H MPV 7.5 Sodium 135 L Potassium 4.1 Chloride 103 Carbon Dioxide 25 Anion Gap 8 BUN 13.4 Creatinine 1.2 Est GFR (CKD-EPI)AfAm 66.73 Est GFR (CKD-EPI)NonAf 57.57 Random Glucose 88 Calcium 9.4 Total Bilirubin 1.6 H Direct Bilirubin 0.9 H AST 65 H ALT 124 H Alkaline Phosphatase 285 H Total Protein 7.8 Albumin 3.2 L Active Medications Generic Name Dose Route Start Last Admin Trade Name Freq PRN Reason Stop Dose Admin Acetaminophen 650 mg 08/21/19 08:14 Tylenol - PO Q4H PRN FEVER Enoxaparin Sodium 40 mg 08/21/19 10:00 08/23/19 09:16 Lovenox - SQ 40 mg DAILY KAREN Administration Piperacillin Sod/Tazobactam 100 mls @ 200 mls/hr 08/21/19 18:00 08/23/19 17: 02 Sod 4.5 gm/ Dextrose IVPB 200 mls/hr Q8H-IV KAREN Administration Protocol Sodium Chloride 1,000 mls @ 100 mls/hr 08/23/19 15:30 08/23/19 15:25 Normal Saline - IV 08/25/19 01:29 100 mls/hr ASDIR KAREN Administration Ondansetron HCl 4 mg 08/21/19 11:39 08/23/19 09:36 Zofran Injection IVPUSH 4 mg Q6H PRN Administration NAUSEA Ondansetron HCl 4 mg 08/21/19 11:39 Zofran Injection IVPUSH Q6H PRN NAUSEA AND/OR VOMITING Polyethylene Glycol 17 gm 08/23/19 14:30 08/23/19 14:58 Miralax (For Daily Use) - PO 17 grams BID KAREN Administration ASSESSMENT/PLAN: Mr. Kirkland is a 79y/o male with abdominal pain that began 2 months ago. Initial workup was negative and pt was started on omeprazole. Pain worsened over the last 3 days, so pt presented to the ED. #leukocytosis Afebrile -repeat labs tomorrow #constipation, improved -miralax and suppositories if needed #sepsis 2/2 cholecystitis and ascending cholangitis, improved s/p ERCP with stone removal and stent placement POD 2 cholecystectomy -blood cx negative -Zosyn 4.5g Q8H (08/17)- will d/c in AM -Zofran PRN -ID following -GI following -surgery following -likely PO abx at discharge -NS for hypotension #transaminitis improved from admission, slight bump AST/ALT overnight -check labs tomorrow #hyperbilirubinemia improved from admission DVT Ppx SCDs FEN PO fluids/ NS 100mL/hr x 2 bags monitor labs regular diet dispo monitor on med/surg, poss d/c tomorrow if stable Visit type - Emergency Visit Emergency Visit: Yes ED Registration Date: 08/17/19 Care time: The patient presented to the Emergency Department on the above date and was hospitalized for further evaluation of their emergent condition. - New Patient This patient is new to me today: No - Critical Care Critical Care patient: No - Discharge Referral Referred to [facility] No ATTENDING PHYSICIAN STATEMENT I saw and evaluated the patient. I reviewed the resident's note and discussed the case with the resident. I agree with the resident's findings and plan as documented. SUBJECTIVE: OBJECTIVE: ASSESSMENT AND PLAN:
--- NOTE | 2019-08-23 19:02 | PN.GI ---
GI Progress Note Subjective: Resting comfortably Abdominal pain improved Had BM today Daughter present at bedside - Objective Vital Signs: Vital Signs Temperature 98.3 F 08/23/19 13:15 Pulse Rate 86 08/23/19 17:00 Respiratory Rate 20 08/23/19 13:15 Blood Pressure 106/60 08/23/19 17:00 O2 Sat by Pulse Oximetry (%) 96 08/23/19 09:00 Constitutional: Calm Eyes: No: Sclera Icterus Cardiovascular: Yes: Regular Rate and Rhythm Respiratory: Yes: CTA Bilaterally Gastrointestinal Inspection: No: Distention ...Auscultate: Yes: Normoactive Bowel Sounds ...Palpate: Yes: Soft, Tenderness (Mild TTP at trochar sites). No: Hepatomegaly , Splenomegaly ...Percussion: No: Tympanitic Edema: No (No LE edema) Neurological: Yes: Alert Labs: CBC, BMP 08/23/19 08:25 08/23/19 08:25 INR, PTT INR 1.18 (0.83-1.09) H 08/17/19 10:20 Hepatic Panel Total Bilirubin 1.6 mg/dL (0.2-1) H 08/23/19 08:25 Direct Bilirubin 0.9 mg/dL (0.0-0.2) H 08/23/19 08:25 AST 65 U/L (15-37) H 08/23/19 08:25 ALT 124 U/L (13-61) H 08/23/19 08:25 Alkaline Phosphatase 285 U/L (45-117) H 08/23/19 08:25 Albumin 3.2 g/dl (3.4-5.0) L 08/23/19 08:25 Problem List - Problems (1) Acute cholangitis Assessment/Plan: S/P ERCP with stone extraction and stent, s/p Lap Mckayla Clinically looks well. Discussed case with biliary endoscopist Dr. Simpson. Observing for now Monitor LFTs Abx being discontinued tomorrow If rising liver chemistries and WBC, would continue to monitor as opposed to discharge Problems reviewed: Yes Code(s): K83.09 - OTHER CHOLANGITIS
[2019-08-24 01:21] VITALS: TEMP 98
[2019-08-24] MEDS ORDERED: DEXTROSE 5%-WATER 100 ML IVPB ONE ×2 (01:22→08:24)
[2019-08-24] MEDS ORDERED: PIPERACILLIN/TAZOBACTAM 4.5 GM VIAL IVPB ONE ×2 (01:22→08:24)
[2019-08-24] MEDS: PIPERACILLIN/TAZOB 4.5 GM 4.5 GM in DEXTROSE 5%-WATER 100 ML IVPB SCH ×2 (01:37→09:56)
[2019-08-24] MEDS: SODIUM CHLORIDE 1,000 ML IV SCH (01:41)
[2019-08-24 08:45] LABS: BASO % 0.2 % (0-2.0); EOS % 3.3 % (0-4.5); HEMATOCRIT 38.5 % (35.4-49); HEMOGLOBIN 12.6 GM/dL (11.7-16.9); LYMPH % 39.4 % (8-40); MCH 29.5 pg (25.7-33.7); MCHC 32.7 g/dl (32.0-35.9); MEAN CELL VOLUME 90.2 fl (80-96); MEAN PLT VOLUME 7.7 fl (7.5-11.1); MONO % 7.9 % (3.8-10.2); NEUT % 49.2 % (42.8-82.8); PLATELET COUNT 414 K/MM3 (134-434); RBC 4.27 M/mm3 (4.00-5.60); WHITE BLOOD COUNT 6.7 K/mm3 (4.0-10.0)
[2019-08-24 09:11] LABS: MAGNESIUM 2.2 mg/dL (1.8-2.4); PHOSPHOROUS 3.3 mg/dL (2.5-4.9)
[2019-08-24 09:14] LABS: ALBUMIN 2.6 g/dl (3.4-5.0); BILIRUBIN,DIRECT 0.7 mg/dL (0.0-0.2); BILIRUBIN,TOTAL 1.5 mg/dL (0.2-1); BLOOD UREA NITROGEN 13.5 mg/dL (7-18); CALCIUM 8.4 mg/dL (8.5-10.1); POTASSIUM 4.5 mmol/L (3.5-5.1); TOT PROT 6.4 g/dl (6.4-8.2)
[2019-08-24 09:23] VITALS: BP 109/61; PULSE 75
[2019-08-24] MEDS: POLYETHYLENE GLYCOL 3350 119 GM BTL PO SCH (09:57)
[2019-08-24] MEDS: ENOXAPARIN NA (PORCINE) 40 MG/0.4 ML DISP.SYRIN SQ SCH (09:57)
--- NOTE | 2019-08-24 16:08 | DS ---
Physical Exam: SUBJECTIVE: Patient seen and examined. He reports no abdominal pain, and his appetite is back to normal. He denies chest pain, shortness of breath, fever, chills, nausea, vomiting, or diarrhea. OBJECTIVE: Vital Signs Period Temp Pulse Resp BP Sys/Akers Pulse Ox Last 24 Hr 98 F-98.9 F 64-90 20-20 90-112/52-61 93 PHYSICAL EXAM GENERAL: The patient is awake, alert, and fully oriented, in no acute distress. HEAD: Normal with no signs of trauma. EYES: PERRL, extraocular movements intact, sclera anicteric, conjunctiva clear. ENT: Ears normal, nares patent, moist mucous membranes. NECK: Trachea midline, full range of motion LUNGS: Clear to auscultation HEART: Regular rate and rhythm, no murmur ABDOMEN: Soft, not tender on palpation, nondistended, normoactive bowel sounds, no guarding, no rebound, surgical incisions present with no surrounding erythema EXTREMITIES: Warm, well-perfused, no edema. NEUROLOGICAL: Cranial nerves II through XII grossly intact. Normal speech. PSYCH: Normal mood, normal affect. SKIN: Warm, dry, normal turgor LABS Laboratory Results - last 24 hr 08/24/19 08/24/19 08/24/19 07:15 07:15 07:15 WBC 6.7 RBC 4.27 Hgb 12.6 Hct 38.5 MCV 90.2 MCH 29.5 MCHC 32.7 RDW 14.0 Plt Count 414 MPV 7.7 Absolute Neuts (auto) 3.3 Neutrophils % 49.2 Lymphocytes % 39.4 Monocytes % 7.9 Eosinophils % 3.3 Basophils % 0.2 Nucleated RBC % 0 Sodium 137 Potassium 4.5 Chloride 107 Carbon Dioxide 24 Anion Gap 6 L BUN 13.5 Creatinine 1.0 Est GFR (CKD-EPI)AfAm 83.18 Est GFR (CKD-EPI)NonAf 71.77 Random Glucose 81 Calcium 8.4 L Phosphorus 3.3 Magnesium 2.2 Total Bilirubin 1.5 H Direct Bilirubin 0.7 H AST 47 H ALT 92 H Alkaline Phosphatase 236 H Total Protein 6.4 Albumin 2.6 L HOSPITAL COURSE: Mr. Kirkland is a 79y/o male with abdominal pain that began 2 months ago. Initial workup was negative and pt was started on omeprazole as an out patient. Pain worsened over the last 3 days, so pt presented to the ED. He was septic and had hyperbilirubinemia which peaked at 5.2 just after admission as well as increased LFTs and leukocytosis. ERCP revealed stones in the CBD with pus. Stones were removed and duct was drained and stent placed. After stabilization , pt underwent cholecystectomy. Pt completed 7 days of Zosyn. Mild leukocytosis and bump in LFTs post-op but improved. Pt had constipation but improved with Miralax before discharge. Pt will need stent removed in about 2 months. Date of Admission:08/17/19 Date of Discharge: 08/24/19 Minutes to complete discharge: 35 Discharge Summary Problems reviewed: Yes Reason For Visit: ABDOMINAL PAIN Condition: Improved - Instructions Diet, Activity, Other Instructions: YOUR VISIT: You were admitted to the hospital for abdominal pain and vomiting. You were found to have gallstones and an infected gallbladder. The stones were removed and a stent was placed, then you later had your gallbladder removed. You are improved and are now ready to go home. MEDICATIONS: STOP omeprazole. Take Miralax daily Start Ursodiol 300mg twice a day FOLLOW UP: Dr. oGmez, primary care, in 1 week to check the following labs (CBC,CMP, LFTS) Dr. Oliver, surgery, in 1-2 weeks, to see how you are doing after surgery. Dr. Simpson, gastroenterology, in 2 weeks. You stent will need to be removed in less than 2 months. You can [facility] with Dr. Buck if you cannot get an appointment with Dr. Gomez. OTHER INSTRUCTIONS: 1. Keep surgical site dry. You may shower but do not submerge them until you are seen by Dr. Oliver. 2. Call Dr. Oliver's office or go to the emergency room if you start having increased abdominal pain, vomiting, fever above 101, or the surgical site gets red or oozes thick drainage. 3. Return to the emergency room if you have chest pain, difficulty breathing, leg pain, or extreme fatigue. 4. Drink water to stay hydrated. It will help with constipation as well. *if you begin to have fevers, chest pains, shortness of breath, nausea/vomiting , please return to the emergency room immediately Referrals: David Buck MD [Staff Physician] - Hermes Simpson MD [Staff Physician] - 1 Month Paradise Gomez MD [Primary Care Provider] - 1 Week Kapil Oliver MD [Staff Physician] - 1 Week Disposition: HOME - Home Medications Comprehensive Discharge Medication List: Ambulatory Orders Omeprazole 40 mg PO DAILY 08/16/19 Polyethylene Glycol 3350 [Miralax (For Daily Use) -] 17 gm PO DAILY #1 bottle Ursodiol [Actigall] 300 mg PO BID #60 capsule 08/24/19 This patient is new to me today: No Emergency Visit: Yes ED Registration Date: 08/17/19 Care time: The patient presented to the Emergency Department on the above date and was hospitalized for further evaluation of their emergent condition. Critical Care patient: No - Discharge Referral Referred to [facility] No ATTENDING PHYSICIAN STATEMENT I saw and evaluated the patient. I reviewed the resident's note and discussed the case with the resident. I agree with the resident's findings and plan as documented. SUBJECTIVE: OBJECTIVE: ASSESSMENT AND PLAN:
--- NOTE | 2019-08-24 19:26 | PN ---
Teaching Attending Note Name of Resident: Yamila Khan ATTENDING PHYSICIAN STATEMENT I saw and evaluated the patient. I reviewed the resident's note and discussed the case with the resident. I agree with the resident's findings and plan as documented. SUBJECTIVE: Patient is feeling better ,no fever or vomiting. Daughter at bedside. OBJECTIVE: Vital Signs Temperature 98 F 08/24/19 09:00 Pulse Rate 75 08/24/19 09:00 Respiratory Rate 20 08/24/19 09:00 Blood Pressure 109/61 08/24/19 09:00 O2 Sat by Pulse Oximetry (%) 93 L 08/24/19 09:00 GENERAL: The patient is awake, alert, and fully oriented, in no acute distress. HEAD: Normal with no signs of trauma. EYES: PERRL, extraocular movements intact, sclera anicteric, conjunctiva clear. ENT: Ears normal, oropharynx clear without exudates, moist mucous membranes. NECK: Trachea midline, full range of motion, supple. LUNGS: Breath sounds equal, clear to auscultation bilaterally, no wheezes, no crackles, no accessory muscle use. HEART: RRR, S1, S2 without murmur, rub or gallop. ABDOMEN: Soft, Nt, ND, normoactive bowel sounds, no guarding, no rebound, no hepatosplenomegaly, no masses. EXTREMITIES: 2+ pulses, warm, well-perfused, no edema. NEUROLOGICAL: Cranial nerves II through XII grossly intact. Normal speech, gait not observed. PSYCH: Normal mood, normal affect. SKIN: Warm, dry, normal turgor, no rashes or lesions noted CBCD WBC 6.7 K/mm3 (4.0-10.0) 08/24/19 07:15 RBC 4.27 M/mm3 (4.00-5.60) 08/24/19 07:15 Hgb 12.6 GM/dL (11.7-16.9) 08/24/19 07:15 Hct 38.5 % (35.4-49) 08/24/19 07:15 MCV 90.2 fl (80-96) 08/24/19 07:15 MCHC 32.7 g/dl (32.0-35.9) 08/24/19 07:15 RDW 14.0 % (11.9-15.9) 08/24/19 07:15 Plt Count 414 K/MM3 (134-434) 08/24/19 07:15 MPV 7.7 fl (7.5-11.1) 08/24/19 07:15 CMP Sodium 137 mmol/L (136-145) 08/24/19 07:15 Potassium 4.5 mmol/L (3.5-5.1) 08/24/19 07:15 Chloride 107 mmol/L (98-107) 08/24/19 07:15 Carbon Dioxide 24 mmol/L (21-32) 08/24/19 07:15 Anion Gap 6 MMOL/L (8-16) L 08/24/19 07:15 BUN 13.5 mg/dL (7-18) 08/24/19 07:15 Creatinine 1.0 mg/dL (0.55-1.3) 08/24/19 07:15 Random Glucose 81 mg/dL (74-106) 08/24/19 07:15 Calcium 8.4 mg/dL (8.5-10.1) L 08/24/19 07:15 Total Bilirubin 1.5 mg/dL (0.2-1) H 08/24/19 07:15 AST 47 U/L (15-37) H 08/24/19 07:15 ALT 92 U/L (13-61) H 08/24/19 07:15 Alkaline Phosphatase 236 U/L (45-117) H 08/24/19 07:15 Total Protein 6.4 g/dl (6.4-8.2) 08/24/19 07:15 Albumin 2.6 g/dl (3.4-5.0) L 08/24/19 07:15 CARDIAC ENZYMES Troponin I < 0.02 ng/ml (0.00-0.05) 08/16/19 18:30 Current Medications Generic Name Dose Route Start Last Admin Trade Name Freq PRN Reason Stop Dose Admin Acetaminophen 650 mg 08/21/19 08:14 Tylenol - PO Q4H PRN FEVER Enoxaparin Sodium 40 mg 08/21/19 10:00 08/23/19 09:16 Lovenox - SQ 40 mg DAILY KAREN Administration Piperacillin Sod/Tazobactam 100 mls @ 200 mls/hr 08/21/19 18:00 08/23/19 09: 16 Sod 4.5 gm/ Dextrose IVPB 200 mls/hr Q8H-IV KAREN Administration Protocol Sodium Chloride 1,000 mls @ 100 mls/hr 08/23/19 15:30 08/23/19 15:25 Normal Saline - IV 08/25/19 01:29 100 mls/hr ASDIR KAREN Administration Ondansetron HCl 4 mg 08/21/19 11:39 08/23/19 09:36 Zofran Injection IVPUSH 4 mg Q6H PRN Administration NAUSEA Ondansetron HCl 4 mg 08/21/19 11:39 Zofran Injection IVPUSH Q6H PRN NAUSEA AND/OR VOMITING Polyethylene Glycol 17 gm 08/23/19 14:30 08/23/19 14:58 Miralax (For Daily Use) - PO 17 grams BID KAREN Administration Home Medications Medication Instructions Recorded Omeprazole 40 mg PO DAILY 08/16/19 Polyethylene Glycol 3350 [Miralax 17 gm PO DAILY #1 bottle 08/24/19 (For Daily Use) -] Ursodiol [Actigall] 300 mg PO BID #60 capsule 08/24/19 Microbiology 08/17/19 00:20 Blood - Peripheral Venous Blood Culture - Final NO GROWTH AFTER 5 DAYS INCUBATION 08/17/19 00:04 Blood - Peripheral Venous Blood Culture - Final NO GROWTH AFTER 5 DAYS INCUBATION Laboratory Tests 08/17/19 08/18/19 08/18/19 08:05 08:00 08:00 Total Bilirubin 5.2 H D 4.5 H Direct Bilirubin 3.9 H 3.6 H AST 89 H 88 H ALT 105 H 115 H Alkaline Phosphatase 233 H 202 H 08/19/19 08/20/19 08/22/19 06:18 07:40 06:58 Total Bilirubin 3.1 H 2.1 H 1.3 H Direct Bilirubin 2.2 H 0.8 H AST 86 H 59 H 68 H ALT 125 H 108 H 112 H Alkaline Phosphatase 240 H 273 H 242 H ASSESSMENT AND PLAN: Patient is a 79yo male with PMHx of GERD who presented with Abdominal pain and nausea and vomiting. he was found to have acute ascending cholangitis . #s/p Sepsis due to ascedning cholangitis and cholecystitis . s/p ERCP with removal of stones and drainage of pus. stent placement on 08/21/2019. s/p CCY on 08/21/2019 , Patient is stable today , LFts trending down, as per surgeon and GI; patient can be discharged home with follow up visit. follow up with Dr. Alberto and Dr. Fleming. As per ID , no fruther antibiotic needed after today's dose. patient can be discharged home on Actigall 300mg po bid as per GI and follow up with GI in 2 weeks and afterward in 2 months for strent removal, will be decided by GI. #s/p acute ascending cholangitis on IV antibiotics, s/p ERCP with stent , follow up with Dr. fleming for stent removal # s/p acute cholecystitis s/p sx and completed the course of antibiotics dc patient home.
== END 2019-08-24 12:58 | disposition home or self-care (01) | DRG 854 ==
LOC: JER 17:55 → JERBED 08-17 00:27 → J6S 08-17 04:21
PROVIDERS: ADMIT Internal Medicine; ATTEND Internal Medicine
PROC: 0FC98ZZ Extirpation of Matter from Common Bile Duct, Via Natural or Artificial Opening Endoscopic (ICD-10-PCS; 2019-08-17)
PROC: BF10YZZ Fluoroscopy of Bile Ducts using Other Contrast (ICD-10-PCS; 2019-08-17)
PROC: 0F798DZ Dilation of Common Bile Duct with Intraluminal Device, Via Natural or Artificial Opening Endoscopic (ICD-10-PCS; 2019-08-17)
PROC: 3E1 Administration, Physiological Systems and Anatomical Regions, Irrigation (ICD-10-PCS; 2019-08-21)
PROC: 0FT44ZZ Resection of Gallbladder, Percutaneous Endoscopic Approach (ICD-10-PCS; principal; 2019-08-21 08:00)
DX: A41.9 Sepsis, unspecified organism (principal); K80.42 Calculus of bile duct with acute cholecystitis without obstruction; E87.2 Acidosis; R50.9 Fever, unspecified; R00.0 Tachycardia, unspecified; D72.829 Elevated white blood cell count, unspecified; R94.5 Abnormal results of liver function studies; K21.9 Gastro-esophageal reflux disease without esophagitis
CPT/HCPCS: 36415; 74177-TC; 76000-TC-FY; 76705-TC; 80048; 80053; 80074; 80076; 80307; 81003; 82248; 83605; 83690; 83735; 84100; 84484; 85025; 85027; 85610; 85730; 86850; 86900; 86901; 87040; 88304-TC; 93005; 93010; 94010; 94760; 97116-GP; 97161-GP; 99283-25; J0131; J7030; Q9967

== ENCOUNTER 2019-11-12 12:28 | Day surgery (SDC) | payer OTHER ==
[2019-11-09 16:46] VITALS: BMI 26.2
[2019-11-12] MEDS ORDERED: IOHEXOL 300 MG/ML INFUS..BTL IJ ONE (15:24)
[2019-11-12] MEDS ORDERED: SEVOFLURANE 250 ML BTL ONE (16:42)
[2019-11-12 17:58] VITALS: TEMP 97.8
[2019-11-12 18:52] VITALS: BP 124/79; PULSE 61
--- NOTE | 2019-11-14 11:48 | PATH ---
Surgical Pathology Report Patient Name: BARNEY SHI Med. Rec. #: [id number] /Age/Gender: 1940 (Age: 79) / M Account: [id number] Location: [facility] Taken: 11/12/2019 Received: 11/13/2019 Reported: 11/14/2019 Physicians: Hermes Simpson M.D. Specimen(s) Received OLD BILE STENT Clinical History Retained bile duct stone Final Diagnosis OLD BILE STENT, REMOVAL: CONSISTENT WITH STENT. MACROSCOPIC DIAGNOSIS. Electronically Signed Amna Atkins M.D. Gross Description Received fresh labeled "old bile stent," is an 8.0 cm in length blue portion of tubing, consistent with a stent. No soft tissue is present. No sections are submitted, gross only. /11/13/2019 saudi/11/13/2019
== END 2019-11-12 19:00 | disposition home or self-care (01) ==
LOC: JASU-SURG 12:28
PROVIDERS: ATTEND Internal Medicine Gastroenterology
PROC: 0FPB8DZ Removal of Intraluminal Device from Hepatobiliary Duct, Via Natural or Artificial Opening Endoscopic (ICD-10-PCS; 2019-11-12)
PROC: 0FC98ZZ Extirpation of Matter from Common Bile Duct, Via Natural or Artificial Opening Endoscopic (ICD-10-PCS; principal; 2019-11-12 14:30)
DX: K80.50 Calculus of bile duct without cholangitis or cholecystitis without obstruction (principal)
CPT/HCPCS: 88300-TC

== ENCOUNTER 2024-09-09 18:40 | Emergency (ER) | payer OTHER ==
[2024-09-09 18:58] VITALS: BP 135/78; PULSE 78; RESP 18; TEMP 98.4; BMI 24.0
[2024-09-09 19:28] LABS: HEMATOCRIT 45.3 % (35.4-49); HEMOGLOBIN 15.5 G/dL (11.7-16.9); MCHC 34.2 g/dl (32.0-35.9); MEAN CELL VOLUME 90.8 fl (80-96); MEAN PLT VOLUME 8.3 fl (7.5-11.1); PLATELET COUNT 259.9 10^3/uL (134-434); RBC 4.99 10^6/uL (4.00-5.60); RDW 14.1 % (11.9-15.9); WHITE BLOOD COUNT 6.6 10^3/uL (4.0-10.8)
[2024-09-09] MEDS: SODIUM CHLORIDE 0.9% 500 ML INFUS.BAG IV ONE (19:36)
[2024-09-09] MEDS ORDERED: MECLIZINE HCL 25 MG TABLET (FP) ONE ×2 (19:42→21:06)
[2024-09-09] MEDS: MECLIZINE HCL 25 MG TABLET (FP) PO ONE ×2 (19:51→21:10)
[2024-09-09 19:58] LABS: BILIRUBIN,TOTAL 0.5 mg/dl (0.2-1); CALCIUM 9.2 mg/dl (8.5-10.1); CREATININE 1.1 mg/dl (0.6-1.3); POTASSIUM 4.7 mmol/L (3.5-5.1); TOT PROT 7.4 g/dl (6.4-8.2)
== END 2024-09-09 21:20 | disposition home or self-care (01) ==
LOC: FER 18:40
DX: R42 Dizziness and giddiness (principal)
CPT/HCPCS: 36415; 70450-TC; 80053; 82550; 84484; 85027; 99284-25